=== PATIENT | male | born 1950 | race Caucasian/White ===

== ENCOUNTER 2023-09-04 08:25 | Observation (INO) ==
--- NOTE | 2023-09-04 08:32 | Emergency Department Note ---
Impression & Plan Syncope, Chronic atrial fibrillation, Influenza A ED Provider Note NAME: TINY DENISE AGE: 73 SEX: M : 1950 ARRIVES VIA: Ambulance INFORMANT: Patient, ED PROVIDER(S): Nelson Bardales MD CHIEF COMPLAINT: Syncope MEDICAL DECISION MAKING: Patient presents due to concern for syncope. IV was established blood work was obtained along with an EKG screening chest x- ray and patient was ordered IV fluids. Patient's blood work shows a normal white count H&H and platelet count kidney function is unremarkable. Patient's initial troponin negative. As the patient had complained of 2 days of nonproductive cough and bio fire was obtained. Given the patient's lack of prodromal symptoms with associated syncope in the setting of known history of A-fib do not think it unreasonable for admission. Patient is comfortable with this plan of care. I did speak with the on-call hospitalist service LUIS FERNANDO Tam and the patient was admitted by Dr. Dixon. Discussion w/ other healthcare providers: LUIS FERNANDO Tam [facility] Prior /Outside records reviewed: Reviewed AN outpatient orthopedic visit from Dr. Rodriguez from January 2022. Patient was seen for closed fracture of the distal clavicle at that time Differential diagnosis: Vasovagal event, dehydration, infection, hypoglycemia, electrolyte abnormalities, arrhythmia, pulmonary embolism, seizure among others were considered. Diagnostics, as interpreted by me: ECG: A-fib, rate of 53, normal QRS duration, normal axis no ST elevations Cardiac monitoring: An order was placed for continuous cardiac monitoring. The monitor shows a rate of 55 with irregular irregular rhythm. Patient was placed on pulse oximetry Medical decision rules: None Imaging studies: I informally interpreted the patient's chest x-ray which does not show obvious pneumonia or pneumothorax with formal report to follow. HPI: Patient presents due to concern for syncope that occurred earlier today. Patient states that he got up to use the bathroom when suddenly woke up on the floor. The patient denies any head or neck pain. The patient had no prodromal symptoms. The patient denies any lightheadedness or dizziness. The patient did not take his morning medications. Patient does have a known history of A-fib but reportedly is not anticoagulated as it is "too expensive." Patient denies any vomiting or diarrhea no dark or bloody stools. Patient does follow with Dr. Cr with [facility] cardiology PAST MEDICAL HISTORY: See Below PAST SURGICAL HISTORY: See Below SOCIAL HISTORY: See Below HOME MEDICATIONS: See Below ALLERGIES: See Below VITALS: See Below PHYSICAL EXAMINATION: GENERAL: NAD, non-toxic. EYE EXAM: Normal conjunctiva. PERRL, no anisocoria and EOM's grossly intact w/o pain. OROPHARYNX: Moist mucus membranes, grossly normal dentition. NECK: Supple, no nuchal rigidity, no adenopathy, non-tender. No signs of meningismus. FROM of the neck with good chin to chest and neck extension. No stridor. LUNGS: Clear to auscultation. Normal chest wall mechanics. HEART: Irregularly irregular, no MRG. ABDOMEN: Abdomen soft, non-tender, no masses, no rebound or guarding. BACK: No CVA TTP. Lipomas noted to the midline. SKIN: No rashes and no bruising. UPPER EXTREMITIES: Upper extremities are grossly normal. LOWER EXTREMITIES: Grossly normal, no edema. NEURO EXAM: A&O x3, cranial nerves II-XII grossly intact, normal speech, moves all 4 extremities. Past Med/Surg History Medical History BPH (benign prostatic hyperplasia) CAD (coronary artery disease) Chronic atrial fibrillation Declines anticoagulation Closed fracture of distal clavicle Lipoma Surgical History History of root canal procedure (~06/23/17) Left upper History of coronary artery balloon dilation (~2004) PTCA; LAD stent Hx of cataract surgery Bilateral - x 2 about 7 - 8 years ago. 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 Beliefs That Will Affect Care: None marital status: Current Living Situation: Spouse current occupational status: unemployed How many Children do You have: 0 Other Information That Helps Us Care for You: No Feels Safe at Home: Yes Allergies Allergies Allergy/AdvReac Type Severity Reaction Status Date / Time cat dander Allergy Intermediate Sneezing, Unverified 09/04/23 10:48 itchy/watery eyes grass pollen Allergy Intermediate Sneezing, Unverified 09/04/23 10:48 itchy/watery eyes tree and shrub pollen Allergy Intermediate Sneezing, Unverified 09/04/23 10:48 itchy/watery eyes Home Meds Home Medications Medication Instructions Recorded Confirmed multivitamin 1 cap PO QAM 07/12/18 09/04/23 omega 2-cod-tlr-fish oil 1,000 mg 1 tab PO DAILY 07/12/18 09/04/23 (120 mg-180 mg) capsule (Fish Oil) ascorbic acid (vitamin C) 1,000 mg 1,000 mg PO QAM 05/19/20 09/04/23 tablet aspirin 81 mg tablet,delayed 81 mg PO QAM 05/19/20 09/04/23 release cetirizine 10 mg capsule 10 mg PO HS 05/19/20 09/04/23 fluticasone propionate 50 1 spray intranasal DAILY 05/19/20 09/04/23 mcg/actuation nasal spray,suspension (Flonase Allergy Relief) melatonin 3 mg tablet 3 mg PO HS 05/19/20 09/04/23 tamsulosin 0.4 mg capsule (Flomax) 0.4 mg PO QAM 05/19/20 09/04/23 Testosterone 20% Gel 1 pump topical QA 09/04/23 09/04/23 soybean, fermented 50 mg capsule 100 mg PO QAM 09/04/23 09/04/23 (Nattokinase) tadalafil 5 mg tablet 5 mg PO QAM 09/04/23 09/04/23 tizanidine 2 mg tablet 2 mg PO HS PRN Muscle Spasm 09/04/23 09/04/23 vitamin B complex 1 tab PO QAM 09/04/23 09/04/23 Results & Data (ED) Vital Signs Vital Signs - 24 hr 09/04/23 08:30 09/04/23 08:41 09/04/23 09:00 Temperature 37.0 C Temperature Source Oral Pulse Rate 69 72 67 Pulse Rate from SpO2 Sensor Pulse Rhythm Regular Pulse Strength Normal Respiratory Rate 20 Respiratory Effort / Characteristics Non-Labored Spontaneous Respiratory Depth Normal Respiratory Pattern Regular Blood Pressure 103/67 Blood Pressure Mean 79 Blood Pressure Position Sitting Pulse Oximetry 95 96 Oxygen Delivery Method Room Air Nasal Cannula Sepsis Recent Fever Within 48 Hours No Sepsis New/Unexplained Change in Mental Status No Sepsis Action Taken by Nursing No Action Required 09/04/23 09:29 09/04/23 09:30 09/04/23 10:08 Temperature Temperature Source Pulse Rate 73 65 66 Pulse Rate from SpO2 Sensor 72 66 Pulse Rhythm Pulse Strength Respiratory Rate 17 15 15 Respiratory Effort / Characteristics Respiratory Depth Respiratory Pattern Blood Pressure 116/73 103/64 102/62 Blood Pressure Mean 87 77 75 Blood Pressure Position Pulse Oximetry 97 97 Oxygen Delivery Method Sepsis Recent Fever Within 48 Hours Sepsis New/Unexplained Change in Mental Status Sepsis Action Taken by Nursing 09/04/23 10:30 Temperature Temperature Source Pulse Rate 66 Pulse Rate from SpO2 Sensor 63 Pulse Rhythm Pulse Strength Respiratory Rate 20 Respiratory Effort / Characteristics Respiratory Depth Respiratory Pattern Blood Pressure 105/73 Blood Pressure Mean 83 Blood Pressure Position Pulse Oximetry 95 Oxygen Delivery Method Sepsis Recent Fever Within 48 Hours Sepsis New/Unexplained Change in Mental Status Sepsis Action Taken by Correction Medications Current Medication List: was personally reviewed by me Laboratory Data Attestation: I reviewed the patient's lab results. 09/04/23 08:30 09/04/23 08:30 Lab Results 09/04/23 Range/Units 08:30 WBC 5.54 (4.8-10.8) K/ul RBC 5.09 (4.70-6.10) M/uL Hgb 15.9 (14.0-18.0) g/dl Hct 46.8 (42.0-52.0) % MCV 91.9 (80.0-100.0) fL MCH 31.2 (25.0-34.0) pg MCHC 34.0 (32.0-36.0) g/dL RDW Std Deviation 45.4 (36.4-46.3) fL RDW Coeff of Penelope 13.3 (11.5-14.5) % Plt Count 134 (130-400) K/uL MPV 9.7 (9.4-12.4) fL Immature Gran % (Auto) 0.2 % Neut % (Auto) 54.3 % Lymph % (Auto) 29.8 % [place] % (Auto) 13.9 % Eos % (Auto) 0.9 % Baso % (Auto) 0.9 % Neut # (Auto) 3.01 (1.40-6.50) K/uL Lymph # (Auto) 1.65 (1.20-3.40) K/uL [place] # (Auto) 0.77 H (0.11-0.59) K/uL Eos # (Auto) 0.05 (0.00-0.50) K/uL Baso # (Auto) 0.05 (0.00-0.20) K/uL Immature Gran # (Auto) 0.01 (0.01-0.20) K/uL PT 11.5 (9.0-12.0) Seconds INR 1.1 (0.9-1.1) APTT 27 (21-31) Seconds PTT Ratio 1.0 Sodium 140 (136-145) mmol/L Potassium 3.9 (3.5-5.1) mmol/L Chloride 108 H (98-107) mmol/L Carbon Dioxide 28 (21-32) mmol/L Anion Gap 4 (3-11) BUN 22 (6-23) mg/dl Creatinine 1.20 (0.6-1.4) mg/dl Est Cr Clr Drug Dosing 60.1 ml/min Est GFR ( Amer) 68.6 ml/min Est GFR (Non-Af Amer) 59.2 ml/min BUN/Creatinine Ratio 18.3 (10-20) Glucose 116 H (70-99(Fasting)) mg/dl Calcium 8.8 (8.6-10.3) mg/dl Magnesium 1.8 (1.7-2.4) mg/dl Total Bilirubin 1.1 H (0.2-1.0) mg/dl AST 29 (13-39) U/L ALT 18 (7-52) U/L Alkaline Phosphatase 47 (34-104) U/L Troponin I High Sens 16.2 (0-20) pg/ml Total Protein 6.5 (6.0-8.3) gm/dl Albumin 3.8 (3.4-5.0) gm/dl Globulin 2.7 (2.5-4.0) gm/dl Albumin/Globulin Ratio 1.4 (0.9-2) TSH 4.041 (0.300-4.500) uIu/ml Administered Medications Enoxaparin Sodium (Enoxaparin Inj 40 Mg/0.4 Ml Syr) 40 mg SQ DAILY [facility] Stop: 10/04/23 12:44 Last Admin: 09/04/23 13:37 Dose: 40 mg Documented By: AMALIA Sodium Chloride (Nss) 1,000 mls @ 80 mls/hr IV .[id number] AMY Stop: 09/05/23 12:59 Last Admin: 09/04/23 13:37 Dose: 80 mls/hr Documented By: AMALIA Miscellaneous (Tadalafil ~ Order Awaiting Action) 1 each N/A QS [facility] Stop: 10/04/23 15:59 Last Admin: 09/04/23 13:33 Dose: Not Given Documented By: AMALIA Discontinued Medications Sodium Chloride (Nss) 500 mls @ 999 mls/hr IV .Q31M AMY Stop: 09/04/23 09:30 Last Infusion: 09/04/23 09:30 Dose: Infused Documented By: Admin: 09/04/23 08:59 Dose: 999 mls/hr Documented By: MEDARDO Ioversol (Optiray 320 125ml) 115 ml IV ONCE ONE Stop: 09/04/23 12:17 Last Admin: 09/04/23 12:16 Dose: 115 ml Documented By: SINAN Potassium Chloride (Potassium Chloride Crtab 20 Meq Tabcr) 40 meq PO NOW STA Stop: 09/04/23 13:27 Last Admin: 09/04/23 13:37 Dose: 40 meq Documented By: AMALIA Imaging Data Radiologist's Impression: Chest X-Ray 09/04/23 08:48 XR chest 1V portable CLINICAL HISTORY: Syncope. COMPARISON STUDY: Chest radiograph August 28, 2009. FINDINGS: Lung volumes are normal. Lungs are clear. There is no pneumothorax or pleural effusion. Cardiac size is normal. Mediastinal contours are normal. There is no evidence for pulmonary edema. Incidental note is made of an old nonunited distal left clavicular fracture. IMPRESSION: No acute cardiopulmonary findings. ACT 112: Negative or not required by law. Electronically signed by: Madi Stanton M.D. 09/04/2023 9:[address] 09/04/23 09:49 CT SCAN OF THE BRAIN WITHOUT IV CONTRAST CLINICAL HISTORY: Syncope. Head injury. COMPARISON STUDY: CT of the brain dated 07/12/2018. TECHNIQUE: Unenhanced axial CT scan of the brain is performed from the vertex to the skull base. A dose lowering technique was utilized adhering to the principles of ALARA. CT DOSE: 625.8 mGy.cm FINDINGS: Brain parenchyma: There is age-related involutional change noting mild subcortical and periventricular microangiopathic disease. There is no hemorrhage, mass effect, or evidence of acute territorial ischemia by CT criteria. Richardson-white matter differentiation is preserved. No extra-axial fluid collection is seen. Ventricles, sulci, cisterns: Prominent secondary to involutional change. Intracranial vasculature: There is atherosclerotic calcification of the cavernous carotid arteries. Calvarium: The skeletal structures are osteopenic. No depressed calvarial fracture is seen. Soft tissues: There is posterior scalp contusion. Sinuses and mastoids: There is opacification of the right anterior ethmoid sinuses. Mild mucosal thickening is noted of the right frontal sinus. There is trace mucosal thickening within the left ethmoid sinuses and the sphenoid sinuses. The mastoid air cells are well pneumatized. Orbits: The bony orbits are grossly intact. There are bilateral ocular lens implants. IMPRESSION: There is no hemorrhage, mass effect, or evidence of acute territorial ischemia by CT criteria. ACT 112: Negative or not required by law. Electronically signed by: Dominic Funk M.D. 09/04/2023 10:12 AM Discharge Plan Visit Data Chief Complaint: Syncope Stated Complaint: SYNCOPE ED Provider: Nelson Bardales Discharge Problem: Syncope, Chronic atrial fibrillation, Influenza A Patient Disposition: Admitted As Inpatient Discharge Instructions Interventions: ED Discharge Assessment Last Done: 09/04/23 11:39 Discharge Problem: Syncope Qualifiers: Syncope type: unspecified Qualified Code(s): R55 - Syncope and collapse
[2023-09-04] MEDS ORDERED: SODIUM CHLORIDE 0.9% 500 ML IV SCH (09:00)
[2023-09-04 09:05] LABS: Basophils # (auto) 0.05 K/uL (0.00-0.20); Basophils % (auto) 0.9 %; Eosinophils # (auto) 0.05 K/uL (0.00-0.50); Eosinophils % (auto) 0.9 %; Hematocrit (blood only) 46.8 % (42.0-52.0); Hemoglobin 15.9 g/dl (14.0-18.0); Immature Granulocytes # (auto) 0.01 K/uL (0.01-0.20); Immature Granulocytes % (auto) 0.2 %; Lymphocytes # (auto) 1.65 K/uL (1.20-3.40); Lymphocytes % (auto) 29.8 %; Mean Corpuscular Hemoglobin 31.2 pg (25.0-34.0); Mean Corpuscular Volume 91.9 fL (80.0-100.0); Mean Platelet Volume 9.7 fL (9.4-12.4); Monocytes # (auto) 0.77 K/uL (0.11-0.59); Monocytes % (auto) 13.9 %; Neutrophils # (auto) 3.01 K/uL (1.40-6.50); Neutrophils % (auto) 54.3 %; Platelet Count 134 K/uL (130-400); RDW Coefficient of Variation 13.3 % (11.5-14.5); RDW Standard Deviation 45.4 fL (36.4-46.3); Red Blood Count 5.09 M/uL (4.70-6.10); White Blood Count 5.54 K/ul (4.8-10.8)
[2023-09-04 09:18] LABS: Albumin Globulin Ratio 1.4 (0.9-2); Albumin Level 3.8 gm/dl (3.4-5.0); BUN Creatinine Ratio 18.3 (10-20); Bilirubin,Total 1.1 mg/dl (0.2-1.0); Calcium 8.8 mg/dl (8.6-10.3); Creatinine Clr Calc Pharmacy 60.1 ml/min; Est GFR (African American) 68.6 ml/min; Est GFR (Non-African American) 59.2 ml/min; Globulin 2.7 gm/dl (2.5-4.0); Magnesium 1.8 mg/dl (1.7-2.4); Potassium 3.9 mmol/L (3.5-5.1); Total Protein 6.5 gm/dl (6.0-8.3)
--- NOTE | 2023-09-04 09:20 | XRay Report ---
XR chest 1V portable CLINICAL HISTORY: Syncope. COMPARISON STUDY: Chest radiograph August 28, 2009. FINDINGS: Lung volumes are normal. Lungs are clear. There is no pneumothorax or pleural effusion. Car diac size is normal. Mediastinal contours are normal. There is no evidence for pulmonary edema. Incid ental note is made of an old nonunited distal left clavicular fracture. IMPRESSION: No acute cardiopulmonary findings. ACT 112: Negative or not required by law. Electronically signed by: Madi Stanton M.D. 09/04/2023 9:19 AM
[2023-09-04 09:33] LABS: Thyroid Stimulating Hormone 4.041 uIu/ml (0.300-4.500)
--- NOTE | 2023-09-04 10:14 | CT Scan Report ---
CT SCAN OF THE BRAIN WITHOUT IV CONTRAST CLINICAL HISTORY: Syncope. Head injury. COMPARISON STUDY: CT of the brain dated 07/12/2018. TECHNIQUE: Unenhanced axial CT scan of the brain is performed from the vertex to the skull base. A do se lowering technique was utilized adhering to the principles of ALARA. CT DOSE: 625.8 mGy.cm FINDINGS: Brain parenchyma: There is age-related involutional change noting mild subcortical and periventricula r microangiopathic disease. There is no hemorrhage, mass effect, or evidence of acute territorial isc hemia by CT criteria. Richardson-white matter differentiation is preserved. No extra-axial fluid collection is seen. Ventricles, sulci, cisterns: Prominent secondary to involutional change. Intracranial vasculature: There is atherosclerotic calcification of the cavernous carotid arteries. Calvarium: The skeletal structures are osteopenic. No depressed calvarial fracture is seen. Soft tissues: There is posterior scalp contusion. Sinuses and mastoids: There is opacification of the right anterior ethmoid sinuses. Mild mucosal thic kening is noted of the right frontal sinus. There is trace mucosal thickening within the left ethmoid sinuses and the sphenoid sinuses. The mastoid air cells are well pneumatized. Orbits: The bony orbits are grossly intact. There are bilateral ocular lens implants. IMPRESSION: There is no hemorrhage, mass effect, or evidence of acute territorial ischemia by CT dionicio puente. ACT 112: Negative or not required by law. Electronically signed by: Dominic Funk M.D. 09/04/2023 10:12 AM
[2023-09-04 10:26] LABS: INR 1.1 (0.9-1.1); Partial Thromboplastin Time 27 Seconds (21-31); Prothrombin Time 11.5 Seconds (9.0-12.0)
[2023-09-04 10:48] LABS: Troponin I High Sensitivity 16.2 pg/ml (0-20)
--- OUTSIDE RECORDS SUMMARY | 2023-09-04 11:55 | External Medical Summary | Summary of Care ---
Author Name Unknown Organization [facility] Address [address] [place] [address] Phone [phone] Care Team Providers Care Best [employer] Name Role Phone Jean Lopez MD Primary Care Provider + Reason for Visit * Reason Onset Date Comments Appointment 04/04/2023 Encounter Details Date Type Department Care Team Description 04/04/2023 Telephone Care at Home [address] [place] [address] Services, Scheduling [address] [place] [address] Appointment Allergies Active Allergy Reactions Severity Noted Date Comments Environmental Allergy test positive Medium 06/28/2009 Grass,shwetha, trees, and cats documented as of this encounter (statuses as of 05/08/2023) Medications Medication Sig Dispensed Refills Start Date End Date Status MELATONIN 3 MG PO TABS 1/2 mg daily 0 Active MULTIVITAMINS PO TABS 1 tab daily 0 Active fluticasone (FLONASE) 50 MCG/ACT nasal spray Administer 1 [place] into nostril in the morning. 0 Active Ascorbic Acid 1000 MG Oral Tablet 2 tabs a day 60 Tab 0 7 Active PREVIDENT 5000 SENSITIVE 1.1-5 % PSTE USE PEA-SIZED AMOUNT AND BRUSH AT BEDTIME, SPIT BUT DO NOT RINSE 4 7 Active Aspirin 81 MG Tablet Take 1 Tablet by mouth in the morning and 1 Tablet before bedtime. 0 9 Active Nattokinase 100 MG CAPS Take by mouth. 0 Active Cholecalciferol (VITAMIN D) 125 MCG (5000 UT) CAPS Take by mouth. 0 Active [place]-3 Fatty Acids (FISH OIL) 1000 MG Capsule Take 1 Capsule by mouth in the morning. 0 Active Cetirizine HCl 10 MG Capsule Take 1 Capsule by mouth in the morning. 0 Active Coenzyme Q10 (COQ10) 100 MG CAPS Take by mouth. 0 Active Hair Skin and Nails Formula Oral Tablet Take by mouth. 0 Active Sodium Fluoride 5000 PPM 1.1 % Dental Paste USE DAILY...BRUSH AND EXPECTORATE 0 1 Active Amoxicillin 500 MG Oral Capsule (Amoxil)Indicati ons:S/P angioplasty with stent,Chronic coronary artery disease,SBE (subacute bacterial endocarditis) prophylaxis candidate Take 4 capsules by mouth 1 hour before procedure 4 Capsule 1 2 Active Glucos Chondroit (Boswellia) Oral Tablet Take by mouth . 0 Active Pregnenolone Micronized 50 MG Oral Tablet Take by mouth 50 mg 2 times a day . Per patient 0 Active Vitamin B-12 1000 MCG Oral Tablet Take 1 Tablet by mouth in the morning. 0 Active Astragalus Root Powder Take by mouth 250 mg daily . 0 Active Ashwagandha 500 MG Oral Capsule Take by mouth . 0 Acti ve Meloxicam 15 MG Oral TabletIndication s:Injury of right rotator cuff, initial encounter Take 1 Tablet by mouth in the morning. for pain.. 30 Tablet 5 2 Active Additional Information Patient not taking.Reported on 01/29/2023 Tadalafil 5 MG Oral Tablet (Cialis)Indicati ons:Erectile dysfunction, unspecified erectile dysfunction type,BPH with obstruction/lowe r urinary tract symptoms Take 1 Tablet by mouth in the morning. 90 Tablet 1 3 Active Finasteride 5 MG Oral Tablet (Proscar)Indicat ions:BPH with obstruction/lowe r urinary tract symptoms Take 1 Tablet by mouth in the morning. 90 Tablet 1 3 Active tiZANidine HCl 2 MG Oral Tablet (Zanaflex) Take 1-2 tablets by mouth at night as needed for pain or muscle spasm and tightness 60 Tablet 2 3 Active Gabapentin 300 MG Oral Capsule (Neurontin) Take 1 Capsule by mouth at bedtime. 30 Capsule 1 3 Active Additional Information Patient not taking.Reported on 01/29/2023 Tamsulosin HCl 0.4 MG Oral Capsule (Flomax)Indicati ons:BPH with obstruction/lowe r urinary tract symptoms Take by mouth 1 Capsule in the morning. 90 Capsule 3 2 04/30/20 23 Discontinued Testosterone Compounding Kit 20 % Transdermal CreamIndications :Hypogonadism male Apply 0.5 mL once a day 30 g 1 3 04/08/20 23 Discontinued(Ref ill) documented as of this encounter (statuses as of 05/08/2023) Active Problems Problem Noted Date History of fracture of clavicle 07/10/20 22 [place]-neck deformity of finger of right h and 03/28/2022 Chronic bilateral low back pain without sciatica 12/19/2021 Mixed hyperlipidemia 12/19/2021 Trigger finger of left thumb 11/28/2021 BPH with obstruction/lower urinary tract symptoms 06/09/2019 Hypogonadism male 02/24/2019 Numbness in feet 07/24/2018 Chronic atrial fibrillation 04/23/2011 ADVANCE DIRECTIVE INFORMATION 05/22/2005 Overview: No, Advance Directive brochure given to patient at prior appointment. S/P angioplasty with stent 12/15/2004 Chronic coronary artery disease 12/16/19 05 Old MD (myocardial infarction) 5 documented as of this encounter (statuses as of 05/08/2023) Resolved Problems Problem Noted Date Resolved Date Kidney disease, chronic, stage III (GFR 30-59 ml /min) 05/06/2018 07/10/2022 Overview: Per CKD protocol #1 - Chronic throat clearing 09/26/2017 12/20/19 22 Post-nasal drip 09/26/2017 07/07/2018 FDC current use of anticoagulant therapy 0 03/08/2009 10/12/2010 Overview: ICD-10 update of inactive term Anticoagulation management encounter 03/08/2009 10/12/2010 Atrial fibrillation 10/12/2010 documented as of this encounter (statuses as of 05/08/2023) Immunizations Name Administration Dates Next Due COVID-19 mRNA, LNP-s, No Pre serve, 2-Dose Series ([employer]) 01/12/2022,06/18/2021,11/19/2020,10/29 Covid-19, Mrna, Lnp-s, Pf, B ivalent, 30 Mcg, IM, 12 yrs and above (Pfizer) 06/04/2022 DTaP - Dipth/Tet/Acell Pertussis 06/16/2014 Pneumococcal Conjugate Vacc, 13 Valent (Prevnar) 10/04/2014 Pneumococcal Polysaccharide PPV23 (Pneumovax) 07/13/2015 Seasonal Influenza, Quadriva lent Hd (Fluzone Hd) 06/12/2021 Seasonal Influenza, Quadriva lent Hd, 65+ Yrs 05/19/2020 Seasonal Influenza, Quadriva lent, No Preserve, 6 Mons & Above, IM 07/07/2018,07/15/2017 Seasonal Influenza, Quadriva lent, No Preserve, IM 07/07/2018,06/07/2016 Seasonal Influenza, Split, I IV3, With Preserve, Inj 06/23/2015 Seasonal Influenza, Trivalen t, Adjuvanted, 65+ yrs 06/09/2019 Seasonal Influenza, Trivalen t, High Dose, No Preserve, IM 06/19/2022 TDAP (age 10 and older)(Boostrix) 03/01/2017 Varicella Zoster Vaccine (Adult) 09/24/2010 Zoster Vaccine Recombinant (Shingrix) 02/24/2020 ,10/12/2019 documented as of this encounter Social History Tobacco Use Types Packs/Day Years Used Date Smoking Tobacco: Never Smokeless Tobacco: Never Alcohol Use Standard Drinks/Week Comments Yes 0 (1 standard drink = 0.6 oz pur e alcohol) rare social Food Insecurity Answer Date Recorded Within the past 12 months, y ou worried that your food would run out before you got money to buy more. Never true 01/15/2023 Within the past 12 months, t he food you bought just didn't last and you didn't have money to get more. Never true 01/15/2023 Sex Assigned at Date Recorded Male 02/24/2019 10:35 AM EDT Job Start Date Occupation Industry Not on file Not on file Not on file documented as of this encounter Miscellaneous Notes * Telephone Encounter - BREA Peck - 05/08/2023 2:25 PM EDT Care At Home Outreach Call attempt: 2nd Call Call result: Call Successful - Patient enrolled and agreed to visit. Appointment with: Stephanie Corcoran PA-C Visit Date: 05/21/23 Visit Time: 1030am BREA Peck * Telephone Encounter - BREA Peck - 04/04/2023 9:33 AM EDT [facility] Home Outreach Call attempt: 1st Call Call result: Call Unsuccessful - Left a voice mail Looking to schedule patient for AWV with Stephanie Corcoran PA-C Can offer: 04/10/23 or 04/15/23 Provided a call back number of [phone]. BREA Peck documented in this encounter Plan of Treatment Upcoming Encounters Date Type Specialty Care Team Description 05/21/2023 Home Visit Family Medicine Stephanie Corcoran PA-C [address] [place] [id number] 06/13/2023 Office Visit Cardiology Kenton Cr MD [address] [place] [phone] Health Maintenance Due Date Last Done Comments Sigmoidoscopy 1994 Colonoscopy 04/23/2018 04/23/2008 Fecal Occult Blood Test 08/10/2022 08/10/2021 Influenza Vaccine (FLU shot) (#1) 2023 06/19/2022, 06/12/2021, 05/19/2020, Additional history exists Depression Screening, Annual for Pts 12 and Over 01/16/2024 01/15/2023 Cologuard 07/28/2025 07/28/2022, 06/24, 07/20/2022, Additional history exists Colorectal Cancer Screening 07/28/2025 DTaP,Tdap,and Td Vaccines (3 - Td or Tdap) 03/01/2027 03/01/2017, 06/16/2014 Pneumococcal Vaccine: 65+ Years Completed 07/13/2015, 10/04/2014 Zoster Vaccines Completed 02/24/2020, 09/24, 09/24/2010 COVID-19 Vaccine Completed 06/04/2022, , 06/18/2021, Additional history exists Albumin/Creatinine Ratio Discontinued 022, 07/05/2021, 12/02/2019, Additional history exists GARDASIL-HPV IMMUNIZATION SERIES Aged Out No longer eligible based on patient's age to complete this topic Hepatitis B Aged Out No longer eligi ble based on patient's age to complete this topic MENINGOCOCCAL (MENACTRA/MENVEO) Aged Out No longer eligible based on patient's age to complete this topic documented as of this encounter Medical Devices Not on filedocumented as of this encounter Care Teams Best 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
--- OUTSIDE RECORDS SUMMARY | 2023-09-04 11:55 | External Medical Summary | Summary of Care ---
Author Name Unknown Organization [facility] Address [address] [place] [address] Phone [phone] Care Team Providers Care Grievance And Appeals Coordinator Name Role Phone Jean Anna MD Primary Care Provider + Reason for Visit * Reason Comments Adult Annual Wellness Visit, Initial Vis it Encounter Details Date Type Department Care Team Description 05/21/2023 Home Visit Care at Home [address] [place] [address] Stephanie Corcoran PA-C [address], [place] [id number] H/O cardiac arrest*; BPH with obstruction/lower urinary tract symptoms; Chronic atrial fibrillation (HCC); Chronic bilateral low back pain without sciatica; Chronic coronary artery disease; History of fracture of clavicle; Hypogonadism male; Mixed hyperlipidemia; Old IA (myocardial infarction); S/P angioplasty with stent; 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; Peripheral polyneuropathy Allergies Active Allergy Reactions Severity Noted Date Comments Environmental Allergy test positive Medium 06/28/2009 Grass,shwetha, trees, and cats documented as of this encounter (statuses as of 05/21/2023) Medications Medication Sig Dispensed Refills Start Date End Date Status MELATONIN 3 MG PO TABS 1/2 mg daily 0 Active MULTIVITAMINS PO TABS 1 tab daily 0 Active Ascorbic Acid 1000 MG Oral Tablet 2 tabs a day 60 Tab 0 01/16/2017 Active PREVIDENT 5000 SENSITIVE 1.1-5 % PSTE USE PEA-SIZED AMOUNT AND BRUSH AT BEDTIME, SPIT BUT DO NOT RINSE 4 08/19/2017 Active Aspirin 81 MG Tablet Take 1 Tablet by mouth in the morning and 1 Tablet before bedtime. 0 01/06/2019 Active Nattokinase 100 MG CAPS Take by mouth. 0 Active Cholecalciferol (VITAMIN D) 125 MCG (5000 UT) CAPS Take by mouth. 0 Active Willmar-3 Fatty Acids (FISH OIL) 1000 MG Capsule Take 1 Capsule by mouth in the morning. 0 Active Coenzyme Q10 (COQ10) 100 MG CAPS Take by mouth. 0 Active Hair Skin and Nails Formula Oral Tablet Take by mouth. 0 Active Sodium Fluoride 5000 PPM 1.1 % Dental Paste USE DAILY...BRUSH AND EXPECTORATE 0 09/05/2021 Active Amoxicillin 500 MG Oral Capsule (Amoxil)Indicatio ns:S/P angioplasty with stent,Chronic coronary artery disease,SBE (subacute bacterial endocarditis) prophylaxis candidate Take 4 capsules by mouth 1 hour before procedure 4 Capsule 1 12/04/2021 Active Glucos Chondroit (Boswellia) Oral Tablet Take [...] Take by mouth . 0 Acti ve Tadalafil 5 MG Oral Tablet (Cialis)Indicatio ns:Erectile dysfunction, unspecified erectile dysfunction type,BPH with obstruction/lower urinary tract symptoms Take 1 Tablet by mouth in the morning. 90 Tablet 1 11/26/2022 Active tiZANidine HCl 2 MG Oral Tablet (Zanaflex) Take 1-2 tablets by mouth at night as needed for pain or muscle spasm and tightness 60 Tablet 2 01/16/2023 Active Testosterone Compounding Kit 20 % Transdermal CreamIndications: Hypogonadism male Apply 0.5 mL once a day 30 g 1 04/08/2023 Active Tamsulosin HCl 0.4 MG Oral Capsule (Flomax)Indicatio ns:BPH with obstruction/lower urinary tract symptoms TAKE ONE CAPSULE BY MOUTH EVERY MORNING 90 Capsule 3 04/30/2023 Active Pumpkin Seed Oil Oral Capsule Take by mouth. 0 05/21/2023 Active Cetirizine HCl 10 MG Oral Capsule Take 1 Capsule by mouth in the morning. 0 05/21/2023 Active fluticasone (FLONASE) 50 MCG/ACT nasal spray Administer 1 [place] into nostril in the morning. 0 3 Discontinue d(Medicatio n List Clean Up) Cetirizine HCl 10 MG Capsule Take 1 Capsule by mouth in the morning. 0 3 Discontinue d(Medicatio n List Clean Up) Meloxicam 15 MG Oral TabletIndications :Injury of right rotator cuff, initial encounter Take 1 Tablet by mouth in the morning. for pain.. 30 Tablet 5 09/20/2022 3 Discontinue d(Medicatio n List Clean Up) Finasteride 5 MG Oral Tablet (Proscar)Indicati ons:BPH with obstruction/lower urinary tract symptoms Take 1 Tablet by mouth in the morning. 90 Tablet 1 11/26/2022 3 Discontinue d(Medicatio n List Clean Up) Gabapentin 300 MG Oral Capsule (Neurontin) Take 1 Capsule by mouth at bedtime. 30 Capsule 1 01/16/2023 3 Discontinue d(Medicatio n List Clean Up) documented as of this encounter (statuses as of 05/21/2023) Active Problems Problem Noted Date H/O cardiac arrest 05/21/2023 Peripheral polyneuropathy 05/21/2023 History of fracture of clavicle 07/10/20 22 Barclay-neck deformity of finger of right h and [...] Chronic coronary artery disease 12/16/19 05 Old IA (myocardial infarction) 5 documented as of this encounter (statuses as of 05/21/2023) Resolved Problems Problem Noted Date Resolved Date Kidney disease, chronic, stage III (GFR 30-59 ml /min) 05/06/2018 07/10/2022 Overview: Per CKD protocol #1 - Chronic throat clearing 09/26/2017 12/20/19 22 Post-nasal drip 09/26/2017 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 0 03/08/2009 10/12/2010 Overview: ICD-10 update of inactive term Anticoagulation management encounter 03/08/2009 10/12/2010 Atrial fibrillation 10/12/2010 documented as of this encounter (statuses as of 05/21/2023) Immunizations Name Administration Dates Next Due COVID-19 mRNA, LNP-s, No Pre serve, 2-Dose Series (Skulpt) 01/12/2022,06/18/2021,11/19/2020,10/29 Covid-19, Mrna, Lnp-s, Pf, B ivalent, 30 Mcg, IM, 12 yrs and above (Skulpt) 06/04/2022 DTaP - Dipth/Tet/Acell Pertussis 06/16/2014 Pneumococcal Conjugate Vacc, 13 Valent (Prevnar) 10/04/2014 Pneumococcal Polysaccharide PPV23 (Pneumovax) 07/13/2015 Seasonal Influenza, PF, 6 mo ns & Above, IM , (Flulaval) 07/07/2018,07/15/2017 Seasonal Influenza, Quadriva lent Hd (Fluzone Hd) 06/12/2021 Seasonal Influenza, Quadriva lent Hd, 65+ Yrs 05/19/2020 Seasonal Influenza, Quadriva lent, No Preserve, IM [...] on file documented as of this encounter Last Filed Vital Signs Vital Sign Reading Time Taken Comments Blood Pressure 132/78 05/21/2023 4:13 PM EDT Pulse 85 05/21/2023 4:13 PM EDT Temperature 36.7 C (98.1 F) 05/21/2023 4:13 PM ED T Respiratory Rate 18 05/21/2023 4:13 PM EDT Oxygen Saturation 97% 05/21/2023 4:13 PM EDT Inhaled Oxygen Concentration - - Weight - - Height - - Body Mass Index - - documented in this encounter Progress Notes * Stephanie Corcoran PA-C - 05/21/2023 12:23 PM EDT ANNUAL HEALTH RISK ASSESSMENT Care at Home [address] [facility] [address] Patient Name: Tiny Merlos : 1950 Date of Assessment: 05/21/2023 Gender: Male PCP: [place] [address] [place] [address] [phone] Extended Emergency Contact Information Primary Emergency Contact: CECILIA MERLOS Relation: Spouse Secondary Emergency Contact: JAY ROLLINS Relation: Other - (no specific identity) HRA Intake Documentation: Advance Care Planning: Advance Directive Type: Living Will and Medical Power of Genetic Physician Advance Directive Date: 2017 Medical Adherence: Patient is able to obtain all of her medications? Yes Patient takes medications as prescribed? Yes Patient uses a pill box? No Admissions (within the last year): Not Applicable Hospital ER within 30 days: No Health Maintenance Last physical exam: 01/15/23 Does patient see provider regularly? Yes, Primary Care Provider Cardio-Dr. Cr Spirometry: No Dental Exam: Yes: When: every 6 months and Where: [place], [place] Other Test(s) - No time frame specified Colonoscopy 2007 Findings: A few diverticula were found in the sigmoid colon. Impression: - Diverticulosis of the sigmoid colon. - The exam was otherwise normal to the cecum. Recommendation: - Repeat colonoscopy in 10 years for screening purposes. - Resume Plavix (clopidogrel) at prior dose today. Gustavo Gaffney MD Signed Date: 04/23/2008 03:27:29 PM Number of Addenda: 0 This report has been signed electronically. Note initiated on 04/23/2008 02:48:39 PM XR clavicle 12/04/21 FINDINGS Osteopenia. There is a displaced left distal clavicle fracture with 1 shaft width cranial displacement of the medial clavicular fragment. The distal fragment remains normally aligned with the acromion. Glenohumeral joint is grossly intact. IMPRESSION IMPRESSION Displaced left distal clavicle fracture. MRI R shoulder 11/01/22 HISTORY Shoulder pain; Preoperative planning; No known/automatically detected potential contraindications to MRI TECHNIQUE Multi-planar, multi-sequence MR imaging of the right shoulder was performed without contrast. COMPARISON Right shoulder radiographs 10/16/2022. FINDINGS JOINT FLUID AND SUBACROMIAL/SUBDELTOID BURSA: No joint effusion. Small subacromial bursal effusion. CORACOACROMIAL ARCH: No significant acromioclavicular osteoarthritis. No os acromiale. No subacromial spur. ROTATOR CUFF: There is a moderate grade bursal sided tear of the supraspinatus tendon around the critical zone, involving between 25-50% of the tendon thickness (as seen on coronal images 14-16). Thetear is superimposed on background of supraspinatus tendinosis. The subscapularis, infraspinatus, and teres minor tendons are intact. No rotator cuff muscle atrophy. LONG HEAD BICEPS: Intact and located in the biceps groove. GH JOINT/LABRUM/CAPSULE: Evaluation of the labrum is limited without significant joint fluid or intra-articular gadolinium.There is moderate osteoarthritis of the glenohumeral joint, characterized bychondral loss with marginal osteophytes from the humeral head and glenoid. This includes regions offull-thickness chondral loss with subchondral cysts in the inferior glenoid. Degenerative signal and fraying is seen throughout the labrum. BONE: No fracture or marrow replacing lesion. Incidental note is made of cystic changes around the supraspinatus and infraspinatus tendon insertions onto the greater tuberosity. SOFT TISSUES: Unremarkable. IMPRESSION IMPRESSION 1. Moderate grade bursal sided tear of the supraspinatus tendon. 2. Moderate glenohumeral osteoarthritis. 3. Subacromial bursitis. EKG 04/25/22 Atrial fibrillation Abnormal ECG When compared with ECG of 18-MAY-2021 13:38, No significant change was found Ventricular Rate: 60 Atrial Rate: 416 QRS Duration: 92 QT/QTc: 414/414 ms P-R-T Lucas: 0 : 70 : 59 degrees Echo Interpretation Summary The examination is adequate to evaluate the referral indication. Rate controlled atrial fibrillation was present during the echocardiogram examination. The LV wall thickness is mildly increased (concentric). The left ventricular wall motion is normal. Calculated LV ejection Fraction = 52% (bi-plane method of discs). The left atrium is moderately enlarged (42-48 ml/m^2). Mild aortic valve sclerosis is present. Aortic stenosis is absent. Mild mitral regurgitation is present. Mild tricuspid regurgitation is present. The aortic root is mildly enlarged with diameter of 4 cm. The proximal ascending thoracic aorta is normal sized. Left Ventricle The left ventricular systolic function is normal. Calculated LV ejection Fraction = 52% (bi-plane method of discs). The left ventricular cavity size is normal. The LV wall thickness is mildly increased (concentric). There isno left ventricular mural thrombus. Left Ventricular Wall Motion The left ventricular wall motion is normal. Right Ventricle The right ventricular cavity size is normal (basal dimension < 4.2 cm RV apical 4 chamber view).The right ventricular systolic function is normal as assessed by tricuspid annular plane systolic excursion (TAPSE) (normal >1.7 cm). Atria The left atrium is moderately enlarged (42-48 ml/m^2). The right atrial size is normal. Diastolic Function Left atrial enlargement suggests diastolic left ventricular dysfunction. Aortic Valve The aortic valve anatomy is normal. Mild aortic valve sclerosis is present. Aortic stenosis is absent. There is no significant aortic regurgitation. Mitral Valve The mitral valve anatomy is normal. Mitral stenosis is absent. Mild mitral regurgitation is present. Tricuspid Valve The tricuspid valve anatomy is normal. Tricuspid stenosis is absent. Mild tricuspid regurgitation is present. Pulmonary Valve The pulmonary valve is inadequately visualized but the Doppler data is adequate for interpretation.. Pulmonic stenosis is absent. There is no significant pulmonary regurgitation. TINY MERLOS 07/16/2018 Page 1 of 2 07/16/2018 Pericardium No pericardial effusion is noted. Vessels The aortic root is mildly enlarged. The proximal ascending thoracic aorta is normal sized. Septae There is no evidence of an atrial septal defect but resolution does not allow assessment for a patent foramen ovale. There is no ventricular septal defect. Hemodynamics Normal IVC size and collapsability with sniff indicates a normal right atrial pressure of 3 mmHg. There is no evidence of pulmonary hypertension. The estimated pulmonary artery systolic pressure is 24mm Hg. Cultural Needs: Preferred Language: grenadian Yarsani/Cultural Barriers Identified: no Patient and Caregiver Support System: Patient lives: with a spouse Means of Transportation: Drives. Not a concern. Patient lives in: Two Story - How many stairs: 7 Functional Status and ADL Skills: Ambulation: Independent Dressing: Gets clothes and dresses without any assistance except for tying shoes: Independent Repositioning (bed or chair): Bed Status: Not applicable Able to move freely in chair or bed including turning over: Independent Transfers: Independent Toileting: Goes to bathroom, uses toilet, arranges clothes and returns without any assistance: Independent Continence status: continent of bladder and continent of bowel Feeding: Self Bathing: Self; Not Applicable Requires none assistance with ADLs. DME Vendor Name: N/A Fall Risk Assessment: Fall risk factors present. N/a Hmw-Ce-wpe-Go Test: Time began at 12:15. Patient stood from sitting position and walked approximately 10 feet, returned and sat down. Total time for but-cm-byz-go test was 8 seconds. The patient did well on the "Get Up and Go" test. Nutritional Health Checklist: Changed food due to illness or condition: No (0 pts) Eat fewer than 2 meals per day: No (0 pts) Eat few fruits veggies or milk products: No (0 pts) 3 or more drinks or beer, liquor, wine daily: No (0 pts) Tooth or mouth problem: No (0 pts) Not enough money to purchase food: No (0 pts) Eat alone: No (0 pts) 3 or more medications taken per day: Yes (2 pts) Weight change of 10 lbs. In 6 months: yes lost 10 lb. Has been doing intermittent fasting Not always able to shop, cook or feed self: No (0 pts) Total points: 2 Nutritional Health Score & Recommendation: 0-2: Low nutritional risk Depression Screening: PHQ2 Depression Screening Measure Rehab initial measurement Rehab discharge measurement 1. Little interest or pleasure in doing things 0 - not at all 2. Feeling down, depressed, or hopeless 0 - not at all PHQ-2 Total (sum of all above): 0 1. Feeling nervous, anxious or on edge not at all 2. Not being able to stop or control worrying not at all CATARINO-2 Total (sum of all above): 0 Social Determinants of Health Screening: SDIL Screening Tool Social Determinants of Health Tobacco Use: Low Risk Smoking Tobacco Use: Never Smokeless Tobacco Use: Never Passive Exposure: Not on file Alcohol Use: Not on file Financial Resource Strain: Not on file Food Insecurity: No Food Insecurity Worried About Running Out of Food in the Last Year: Never true Ran Out of Food in the Last Year: Never true Transportation Needs: Not on file Physical Activity: Not on file Stress: Not on file Social Connections: Not on file Intimate Partner Violence: Not on file Depression: At risk PHQ-2 Score: 7 Housing Stability: Not on file Community Resources: Community Resources: Not Applicable Potential Resource Needs from Benefits Identified: No HRA Provider Assessment Documentation: Objective Past Medical History: Diagnosis Date Asthma, allergic BPH (benign prostatic hypertrophy) BPH with obstruction/lower urinary tract symptoms 06/09/2019 Cardiac arrest (HCC) 2004 Chronic atrial fibrillation (HCC) 04/23/2011 Chronic coronary artery disease 12/15/2004 Chronic throat clearing 09/26/2017 History of fracture of clavicle 07/10/2022 Hypogonadism male 02/24/2019 Kidney disease, chronic, stage III (GFR 30-59 ml/min) 05/06/2018 Per CKD protocol #1 - Mixed hyperlipidemia 12/19/2021 Neuropathy left foot Old IA (myocardial infarction) 12/07/2004 Osteoarthritis Rotator cuff disorder right: S/P angioplasty with stent 12/15/2004 Patient Active Problem List Diagnosis Code S/P angioplasty with stent Z95.820 Chronic coronary artery disease I25.10 ADVANCE DIRECTIVE INFORMATION Old IA (myocardial infarction) I25.2 Chronic atrial fibrillation (HCC) I48.20 Numbness in feet R20.0 Hypogonadism male E29.1 BPH with obstruction/lower urinary tract symptoms N40.1, N13.8 Trigger finger of left thumb M65.312 Chronic bilateral low back pain without sciatica M54.50, G89.29 Mixed hyperlipidemia E78.2 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 Cetirizine HCl 10 MG Oral Capsule Take 1 Capsule by mouth in the morning. MELATONIN 3 MG PO TABS 1/2 mg daily MULTIVITAMINS PO TABS 1 tab daily Ascorbic Acid 1000 MG Oral Tablet 2 tabs a day 60 Tab 0 PREVIDENT 5000 SENSITIVE 1.1-5 % PSTE USE PEA-SIZED AMOUNT AND BRUSH AT BEDTIME, SPIT BUT DO NOT RINSE 4 Aspirin 81 MG Tablet Take 1 Tablet by mouth in the morning and 1 Tablet before bedtime. Nattokinase 100 MG CAPS Take by mouth. Cholecalciferol (VITAMIN D) 125 MCG (5000 UT) CAPS Take by mouth. Willmar-3 Fatty Acids (FISH OIL) 1000 MG Capsule Take 1 Capsule by mouth in the morning. Coenzyme Q10 (COQ10) 100 MG CAPS Take by mouth. Hair Skin and Nails Formula Oral Tablet Take by mouth. Sodium Fluoride 5000 PPM 1.1 % Dental Paste USE DAILY...BRUSH AND EXPECTORATE Amoxicillin 500 MG Oral Capsule (Amoxil) Take 4 capsules by mouth 1 hour before procedure 4 Capsule1 Glucos Chondroit (Boswellia) Oral Tablet Take by mouth . Pregnenolone Micronized 50 MG Oral Tablet Take by mouth 50 mg 2 times a day . Per patient Vitamin B-12 1000 MCG Oral Tablet Take 1 Tablet by mouth in the morning. Astragalus Root Powder Take by mouth 250 mg daily . Ashwagandha 500 MG Oral Capsule Take by mouth . Tadalafil 5 MG Oral Tablet (Cialis) Take 1 Tablet by mouth in the morning. 90 Tablet 1 tiZANidine HCl 2 MG Oral Tablet (Zanaflex) Take 1-2 tablets by mouth at night as needed for pain ormuscle spasm and tightness 60 Tablet 2 Testosterone Compounding Kit 20 % Transdermal Cream Apply 0.5 mL once a day 30 g 1 Tamsulosin HCl 0.4 MG Oral Capsule (Flomax) TAKE ONE CAPSULE BY MOUTH EVERY MORNING 90 Capsule 3 No current facility-administered medications for this visit. Past Surgical History: Procedure Laterality Date CATARACT SURGERY,COMPLEX Bilateral x 2 about 7 - 8 years ago CORONARY ARTERY DILATION, BALLOON 2004 PTCA; LAD stent INFORMATION 06/23/2017 root canal done left upper Immunization History Administered Date(s) Administered COVID-19 mRNA, LNP-s, No Preserve, 2-Dose Series (Skulpt) 10/29/2020, 11/19/2020, 06/18/2021, 01/12/2022 Covid-19, Mrna, Lnp-s, Pf, Bivalent, 30 Mcg, IM, 12 yrs and above (Pfizer) 06/04/2022 DTaP - Dipth/Tet/Acell Pertussis 06/16/2014 Pneumococcal Conjugate Vacc, 13 Valent (Prevnar) 10/04/2014 Pneumococcal Polysaccharide PPV23 (Pneumovax) 07/13/2015 Seasonal Influenza, PF, 6 mons & Above, IM , (Flulaval) 07/15/2017, 07/07/2018 Seasonal Influenza, Quadrivalent Hd (Fluzone Hd) 06/12/2021 Seasonal Influenza, Quadrivalent Hd, 65+ Yrs 05/19/2020 Seasonal Influenza, Quadrivalent, No Preserve, IM 06/07/2016, 07/07/2018 Seasonal Influenza, Split, IIV3, With Preserve, Inj 06/23/2015 Seasonal Influenza, Trivalent, Adjuvanted, 65+ yrs 06/09/2019 Seasonal Influenza, Trivalent, High Dose, No Preserve, IM 06/19/2022 TDAP (age 10 and older)(Boostrix) 03/01/2017 Varicella Zoster Vaccine (Adult) 09/24/2010 Zoster Vaccine Recombinant (Shingrix) 10/12/2019, 02/24/2020 Preventative Plan: Diabetes (Fasting plasma glucose every 3 years): Hemoglobin AIC Results: No results found for: HEMOGLOBIN A1C Glucose Results: Lab Results Component Value Date/Time GLUCOSE - [facility] 93 01/16/2023 11:01 AM GLUCOSE - [facility] 91 06/29/2022 09:07 AM GLUCOSE - [facility] 95 12/22/2021 07:52 AM GLUCOSE - [facility] 93 03/15/2020 11:07 AM GLUCOSE - [facility] 69 (L) 01/12/2019 10:17 AM GLUCOSE - [facility] 93 01/02/2019 07:10 AM GLUCOSE, URINE - [facility] NEGATIVE 02/27/2017 10:33 AM Lipid Testing (Every 5 years): Lipid Panel Results: Results for orders placed or performed in visit on 07/24/18 LIPID PANEL Result Value Ref Range HOURS FASTING >8 HOURS hours Triglycerides 95 <200 mg/dL Cholesterol 231 (H) <200 mg/dL HDL Cholesterol 52 >39 mg/dL Cholesterol-HDL Ratio 4.4 LDL Cholesterol 160 (H) 0 - 129 mg/dL Results for orders placed or performed in visit on 01/16/23 LIPID PANEL WITH DIRECT LDL IF TG IS HIGH Result Value Ref Range Triglycerides 78 <=174 mg/dL Cholesterol 263 (H) <200 mg/dL HDL Cholesterol 67 >39 mg/dL Non-HDL Cholesterol 196 (H) <=159 mg/dL LDL Cholesterol 180 (H) <=129 mg/dL Colonoscopy or other screening: cologuard neg 07/20/22 Health Maintenance Topic Date Due Influenza Vaccine (FLU shot) (1) 05/24/2023 Depression Screening, Annual for Pts 12 and Over 01/16/2024 Colorectal Cancer Screening 07/28/2025 DTaP,Tdap,and Td Vaccines (3 - Td or Tdap) 03/01/2027 Zoster Vaccines Completed Pneumococcal Vaccine: 65+ Years Completed COVID-19 Vaccine Completed Hepatitis B Aged Out MENINGOCOCCAL (MENACTRA/MENVEO) Aged Out GARDASIL-HPV IMMUNIZATION SERIES Aged Out Albumin/Creatinine Ratio Discontinued Review of Systems: Review of Systems All other systems reviewed and are negative. Physical Exam: Vitals: 05/21/23 1613 Temp: 36.7 C (98.1 F) Pulse: 85 Resp: 18 SpO2: 97% BP: 132/78 Pain Screening: Yes - Location: back and shoulder, When: intermittent, Duration: varies, Aggravating Factors: certain movement, Relieved by: rest Pain Scale: 1 out of 10 There is no height or weight on file to calculate BMI. Physical Exam Constitutional: Appearance: Normal appearance. HENT: Head: Normocephalic. Mouth/Throat: Mouth: Mucous membranes are moist. Eyes: Extraocular Movements: Extraocular movements intact. Neck: Vascular: No carotid bruit. Cardiovascular: Rate and Rhythm: Normal rate. Rhythm irregular. Heart sounds: No murmur heard. Pulmonary: Effort: Pulmonary effort is normal. Breath sounds: Normal breath sounds. Abdominal: General: Bowel sounds are normal. Palpations: Abdomen is soft. Musculoskeletal: General: No swelling. Cervical back: Neck supple. Skin: General: Skin is warm and dry. Neurological: General: No focal deficit present. Mental Status: He is alert and oriented to person, place, and time. Psychiatric: Mood and Affect: Mood normal. Behavior: Behavior normal. Lab Data: Lab Results Component Value Date/Time BUN - [facility] 26 (H) 01/16/2023 11:01 AM BUN - [facility] 20 03/15/2020 11:07 AM Lab Results Component Value Date/Time CREATININE - [facility] 1.2 01/16/2023 11:01 AM CREATININE - [facility] 1.1 03/15/2020 11:07 AM CREATININE, RANDOM URINE - [facility] 66 06/29/2022 09:07 AM CREATININE, RANDOM URINE - [facility] 27 12/02/2019 01:40 PM Lab Results Component Value Date/Time GLUCOSE - [facility] 93 01/16/2023 11:01 AM GLUCOSE - [facility] 93 03/15/2020 11:07 AM GLUCOSE, URINE - [facility] NEGATIVE 02/27/2017 10:33 AM No components found for: [id number] Lab Results Component Value Date/Time LDL CHOLESTEROL (CALCULATED) - [facility] 180 (H) 01/16/2023 11:01 AM LDL CHOLESTEROL (CALCULATED) - [facility] 160 (H) 07/24/2018 10:03 AM LDL CHOLESTEROL (DIRECT MEASURE) - [facility] 153 (H) 10/31/2007 11:39 AM No results found for: MICROALBUMIN Assessment/Plan: Tiny was seen today for adult annual wellness visit, initial visit. Diagnoses and all orders for this visit: H/O cardiac arrest BPH with obstruction/lower urinary tract symptoms Chronic atrial fibrillation (HCC) Chronic bilateral low back pain without sciatica Chronic coronary artery disease History of fracture of clavicle Hypogonadism male Mixed hyperlipidemia [place] (myocardial infarction) S/P angioplasty with stent 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 Peripheral polyneuropathy PLAN Pt reports no active issues or adverse effects to the established treatment plan. No changes at this time. Strongly advised to contact her care team if changes occur. Care Planning (3+ Personal and/or Medical Goals): Eat healthy Maintain independence Maintain current activity level Treatment Plan: Continue present medication and follow up with PCP as needed Follow Up/Handouts: CAHAWV f/u one year Stephanie Corcoran PA-C documented in this encounter Plan of Treatment Upcoming Encounters Date Type Specialty Care Team Description 06/13/2023 Office Visit Cardiology Kenton Cr MD [address] [place] [address] Health Maintenance Due Date Last Done Comments [...] Not on filedocumented as of this encounter Visit Diagnoses Diagnosis H/O cardiac arrest- Primary 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 Hypertrophy of prostate with urinary obstruction and other lower urinary tract symptoms (LUTS) Chronic atrial fibrillation (HCC) Atrial fibrillation Chronic bilateral low back pain without sciatica Chronic coronary artery disease Coronary atherosclerosis of unspecified type of vessel, hoh or graft History of fracture of clavicle Personal history of traumatic fracture Hypogonadism male Other testicular hypofunction Mixed hyperlipidemia [place] (myocardial infarction) Old myocardial infarction S/P angioplasty with stent Postsurgical percutaneous transluminal coronary angioplasty status 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 [place]-neck deformity Peripheral polyneuropathy Unspecified hereditary and idiopathic peripheral neuropathy documented in this encounter Care Teams Grievance And Appeals Coordinator Relationship Specialty Start Date End Date Jean Anna MD [address] [place] [address] PCP - General Internal Medicine 06/14/21 documented as of this encounter
--- OUTSIDE RECORDS SUMMARY | 2023-09-04 11:55 | External Medical Summary | Summary of Care ---
Author Name Unknown Organization [facility] Address [address] [place] [address] Phone [phone] Care Team Providers Care Computer Systems Consultant Name Role Phone Jean Anna MD Primary Care Provider + Reason for Visit * Reason Comments eRx-Medication Refill Encounter Details Date Type Department Care Team Description 04/29/2023 Refill General Internal Medicine [facility] [address] [place] [address] Jean Anna MD [address] [place] [address] BPH with obstruction/lower urinary tract symptoms Allergies Active Allergy Reactions Severity Noted Date Comments Environmental Allergy test positive Medium 06/28/2009 Grass,shwetha, trees, and cats documented as of this encounter (statuses as of 04/30/2023) Medications Medication Sig Dispensed Refills Start Date End Date Status MELATONIN 3 MG PO TABS 1/2 mg daily 0 Active MULTIVITAMINS PO TABS 1 tab daily 0 Active fluticasone (FLONASE) 50 MCG/ACT nasal spray Administer 1 [place] into nostril in the morning. 0 Active [...] UT) CAPS Take by mouth. 0 Active [place]-3 Fatty Acids (FISH OIL) 1000 MG Capsule [...] 09/05/2021 Active Amoxicillin 500 MG Oral Capsule (Amoxil)Indicati [...] morning. for pain.. 30 Tablet 5 09/20/2022 Active Additional Information Patient not taking.Reported on 01/29/2023 Tadalafil 5 MG Oral Tablet (Cialis)Indicati ons:Erectile dysfunction, unspecified erectile dysfunction type,BPH with obstruction/lowe r urinary tract symptoms Take 1 Tablet by mouth in the morning. 90 Tablet 1 11/26/2022 Active Finasteride 5 MG Oral Tablet (Proscar)Indicat ions:BPH with obstruction/lowe r urinary tract symptoms Take 1 Tablet by mouth in the morning. 90 Tablet 1 11/26/2022 Active tiZANidine HCl 2 MG Oral Tablet (Zanaflex) Take 1-2 tablets by mouth at night as needed for pain or muscle spasm and tightness 60 Tablet 2 01/16/2023 Active Gabapentin 300 MG Oral Capsule (Neurontin) Take 1 Capsule by mouth at bedtime. 30 Capsule 1 01/16/2023 Active Additional Information Patient not taking.Reported on 01/29/2023 Testosterone Compounding Kit 20 % Transdermal CreamIndications :Hypogonadism male Apply 0.5 mL once a day 30 g 1 04/08/2023 Active Tamsulosin HCl 0.4 MG Oral Capsule (Flomax)Indicati ons:BPH with obstruction/lowe r urinary tract symptoms TAKE ONE CAPSULE BY MOUTH EVERY MORNING 90 Capsule 3 04/30/2023 Active Tamsulosin HCl 0.4 MG Oral Capsule (Flomax)Indicati ons:BPH with obstruction/lowe r urinary tract symptoms Take by mouth 1 Capsule in the morning. 90 Capsule 3 05/01/2022 3 Discontinued documented as of this encounter (statuses as of 04/30/2023) Active Problems Problem Noted Date History of fracture of clavicle 07/10/20 22 [place]-neck deformity of finger of right h and [...] Chronic coronary artery disease 12/16/19 05 Old [place] (myocardial infarction) 5 documented as of this encounter (statuses as of 04/30/2023) Resolved Problems Problem Noted Date Resolved Date Kidney disease, chronic, stage III (GFR 30-59 ml /min) 05/06/2018 07/10/2022 Overview: Per CKD protocol #1 - Chronic throat clearing 09/26/2017 12/20/19 22 Post-nasal drip 09/26/2017 07/07/2018 senior care current use of anticoagulant therapy 0 03/08/2009 10/12/2010 Overview: ICD-10 update of inactive term Anticoagulation management encounter 03/08/2009 10/12/2010 Atrial fibrillation 10/12/2010 documented as of this encounter (statuses as of 04/30/2023) Immunizations Name Administration Dates Next Due COVID-19 mRNA, LNP-s, No Pre serve, 2-Dose Series (SceneShot) 01/12/2022,06/18/2021,11/19/2020,10/29 Covid-19, Mrna, Lnp-s, Pf, B ivalent, [...] encounter Miscellaneous Notes * Telephone Encounter - Mo Lnenon [facility] - 04/30/2023 1:21 AM EDTSigned Prescriptions: Disp Refills Tamsulosin HCl 0.4 MG Oral Capsule (Flomax)90 Cap*3 Sig: TAKE ONE CAPSULE BY MOUTH EVERY MORNINGAuthorizing Provider: JEAN ANNA User: MO LENNON documented in this encounter Plan of Treatment Upcoming Encounters Date Type Specialty Care Team Description 06/13/2023 Office Visit Cardiology Kenton Cr MD [address] [place] [address] Health Maintenance Due Date Last Done Comments [...] as of this encounter Visit Diagnoses Diagnosis BPH with obstruction/lower urinary tract symptoms Hypertrophy of prostate with urinary obstruction and other lower urinary tract symptoms (LUTS) documented in this encounter Care Teams Computer Systems Consultant Relationship Specialty Start Date End Date Jean Anna MD [address] [place] [address], [place] [address] PCP - General Internal Medicine 06/14/21 documented as of this encounter
--- OUTSIDE RECORDS SUMMARY | 2023-09-04 11:55 | External Medical Summary | Summary of Care ---
Author Name Unknown Organization [facility] Address [address] [place] [address] Phone [phone] Care Team Providers Care Mower Sharpener Name Role Phone Jean Lopez MD Primary Care Provider + Encounter Details Date Type Department Care Team Description 05/13/2023 Orders Only Outcomes Research Department [address] [place] [address] Elaina Madrigal CHRA [facility] Other*[id number] Allergies Active Allergy Reactions Severity Noted Date Comments Environmental Allergy test positive Medium 06/28/2009 Grass,shwetha, trees, and cats documented as of this encounter (statuses as of 05/13/2023) Medications Medication Sig Dispensed Refills Start Date End Date Status MELATONIN 3 MG PO TABS 1/2 mg daily 0 Active MULTIVITAMINS PO TABS 1 tab daily 0 Active fluticasone (FLONASE) 50 MCG/ACT nasal spray Administer 1 [place] into nostril in the morning. 0 Active [...] UT) CAPS Take by mouth. 0 Active [place]-3 Fatty Acids (FISH OIL) 1000 MG Capsule Take 1 Capsule by mouth in the morning. 0 Active Cetirizine HCl 10 MG Capsule Take 1 Capsule by mouth in the morning. 0 Active Coenzyme Q10 (COQ10) 100 MG CAPS Take by mouth. 0 A ctive Hair Skin and Nails Formula Oral Tablet Take by mouth. 0 A ctive Sodium Fluoride 5000 PPM 1.1 % Dental Paste USE DAILY...BRUSH AND EXPECTORATE 0 09/05/2021 Active Amoxicillin 500 MG Oral Capsule (Amoxil)Indications :S/P angioplasty with stent,Chronic coronary artery disease,SBE (subacute [...] Oral Capsule Take by mouth . 0 Active Meloxicam 15 MG Oral TabletIndications:I njury of right rotator cuff, initial encounter Take 1 Tablet by mouth in the morning. for pain.. 30 Tablet 5 09/20/2022 Active Additional Information Patient not taking.Reported on 01/29/2023 Tadalafil 5 MG Oral Tablet (Cialis)Indications :Erectile dysfunction, unspecified erectile dysfunction type,BPH with obstruction/lower urinary tract symptoms Take 1 Tablet by mouth in the morning. 90 Tablet 1 11/26/2022 Active Finasteride 5 MG Oral Tablet (Proscar)Indication s:BPH with obstruction/lower urinary tract symptoms Take 1 [...] 01/29/2023 Testosterone Compounding Kit 20 % Transdermal CreamIndications:Hy pogonadism male Apply 0.5 mL once a day 30 g 1 04/08/2023 Active Tamsulosin HCl 0.4 MG Oral Capsule (Flomax)Indications :BPH with obstruction/lower urinary tract symptoms TAKE ONE CAPSULE BY MOUTH EVERY MORNING 90 Capsule 3 04/30/2023 Active documented as of this encounter (statuses as of 05/13/2023) Active Problems Problem Noted Date History of fracture of clavicle 07/10/20 22 [place]-neck deformity of finger of right h and [...] Chronic coronary artery disease 12/16/19 05 Old [place] (myocardial infarction) 5 documented as of this encounter (statuses as of 05/13/2023) Resolved Problems Problem Noted Date Resolved Date Kidney disease, chronic, stage III (GFR 30-59 ml /min) 05/06/2018 07/10/2022 Overview: Per CKD protocol #1 - Chronic throat clearing 09/26/2017 12/20/19 22 Post-nasal drip 09/26/2017 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 0 03/08/2009 10/12/2010 Overview: ICD-10 update of inactive term Anticoagulation management encounter 03/08/2009 10/12/2010 Atrial fibrillation 10/12/2010 documented as of this encounter (statuses as of 05/13/2023) Immunizations Name Administration Dates Next Due COVID-19 mRNA, LNP-s, No Pre serve, 2-Dose Series (NOBOT) 01/12/2022,06/18/2021,11/19/2020,10/29 Covid-19, Mrna, Lnp-s, Pf, B ivalent, 30 Mcg, IM, 12 yrs and above (NOBOT) 06/04/2022 DTaP - Dipth/Tet/Acell Pertussis 06/16/2014 Pneumococcal [...] on file documented as of this encounter Plan of Treatment Upcoming Encounters Date Type Specialty Care Team Description 05/21/2023 Home Visit Family Medicine Stephanie Corcoran PA-C [address] [place] [address] 06/13/2023 Office Visit Cardiology Kenton Cr MD [address] [place] [address] Scheduled Orders Name Type Priority Associated Diagnoses Orde r Schedule MYCODE SUBSEQUENT ADULT Lab Routine [facility] Other*[id number] Every 6 Months for 2 Occurrences starting 05/13/2023 until 06/01/2024 Health Maintenance Due Date Last Done Comments [...] as of this encounter Visit Diagnoses Diagnosis [facility] Other*[id number] documented in this encounter Care Teams Mower Sharpener Relationship Specialty Start Date End Date Jean Lopez MD [address] [place] [address] PCP - General Internal Medicine 06/14/21 documented as of this encounter
--- OUTSIDE RECORDS SUMMARY | 2023-09-04 11:55 | External Medical Summary | Summary of Care ---
Author Name Unknown Organization [facility] Address [address] [place] [address] Phone [phone] Care Team Providers Care Winery Cellar Hand Name Role Phone Jean Anna MD Primary Care Provider + Reason for Visit * Reason Comments eRx-Medication Refill Encounter Details Date Type Department Care Team (Late st Contact Info) Description 08/08/2023 Refill General Internal Medicine [facility] [address] [place] [address] Carol Ann Lal MD [address] [place] [address] Hypogonadism male Allergies Active Allergy Reactions Criticality Noted Date Comments Environmental Allergy test positive Medium 06/28/2009 Grass,shwetha, trees, and cats documented as of this encounter (statuses as of 08/13/2023) Medications Medication Sig Dispensed Refills Start Date [...] UT) CAPS Take by mouth. 0 Active [place]-3 Fatty Acids (FISH OIL) 1000 MG Capsule [...] Take by mouth . 0 Acti ve tiZANidine HCl 2 MG Oral Tablet (Zanaflex) Take 1-2 tablets by mouth at night as needed for pain or muscle spasm and tightness 60 Tablet 2 01/16/2023 Active Tamsulosin HCl 0.4 MG Oral Capsule (Flomax)Indicati ons:BPH with obstruction/lowe r urinary tract symptoms TAKE ONE CAPSULE BY MOUTH EVERY MORNING 90 Capsule 3 04/30/2023 Active Pumpkin Seed Oil Oral Capsule Take by mouth. 0 05/21/2023 Active Cetirizine HCl 10 MG Oral Capsule Take 1 Capsule by mouth in the morning. 0 05/21/2023 Active Tadalafil 5 MG Oral Tablet (Cialis)Indicati ons:BPH with obstruction/lowe r urinary tract symptoms,Erectil e dysfunction, unspecified erectile dysfunction type Take 1 Tablet by mouth in the morning. 90 Tablet 1 05/30/2023 Active Testosterone Compounding Kit 20 % Transdermal CreamIndications :Hypogonadism male APPLY ONE PUMP (0.5ML) TOPICALLY DAILY 30 g 1 08/13/2023 Active Testosterone Compounding Kit 20 % Transdermal CreamIndications :Hypogonadism male Apply 0.5 mL once a day 30 g 1 04/08/2023 3 Discontinued documented as of this encounter (statuses as of 08/13/2023) Active Problems Problem Noted Date Diagnosed Date H/O cardiac arrest 05/21/2023 Peripheral polyneuropathy 05/21/2023 History of fracture of clavicle 07/10/2022 [place]-neck deformity of finger of right hand 02/2022 Chronic bilateral low back pain without sciatica 12/19/2021 Mixed hyperlipidemia 12/19/2021 Trigger finger of left thumb 11/28/2021 BPH with obstruction/lower urinary tract symptom s 06/09/2019 Hypogonadism male 02/24/2019 Numbness in feet 07/24/2018 Chronic atrial fibrillation 04/23/2011 ADVANCE DIRECTIVE INFORMATION 05/22/2005 Overview: No, Advance Directive brochure given to patient at prior appointment. S/P angioplasty with stent 12/15/2004 Chronic coronary artery disease 12/15/2004 Old [place] (myocardial infarction) 12/07/2004 documented as of this encounter (statuses as of 08/13/2023) Resolved Problems Problem Noted Date Diagnosed Date Resolved Date Kidney disease, chronic, sta ge III (GFR 30-59 ml/min) 05/06/2018 07/10/2022 Overview: Per CKD protocol #1 - Chronic throat clearing 09/26/2017 03/2 05/2022 Post-nasal drip 09/26/2017 07/07/2018 nursing home current use of ant icoagulant therapy 03/08/2009 10/12/2010 Overview: ICD-10 update of inactive term Anticoagulation management encounter 03/08/2009 10/12/2010 Atrial fibrillation 10/12/19 11 documented as of this encounter (statuses as of 08/13/2023) Immunizations Name Administration Dates Next Due COVID-19 mRNA, LNP-s, No Pre serve, 2-Dose Series ([place].dm) 01/12/2022,06/18/2021,11/19/2020,10/29 COVID-19, MRNA-LNP, 23-24, P F, 30 MCG/0.3 mL, 12 YRS AND ABOVE, IM [facility] 06/26/2023 Covid-19, Mrna, Lnp-s, Pf, B ivalent, 30 Mcg, IM, 12 yrs and above (Pfizer) 06/04/2022 DTaP Dipth/Tet/Acell Pertussis (Infanrix), Peds 06/16/2014 Pneumococcal Conjugate Vacc, 13 Valent (Prevnar) 10/04/2014 Pneumococcal Polysaccharide PPV23 (Pneumovax) 07/13/2015 SEASONAL INFLUENZA, PF, 6 M & Above, IM , (FLULAVAL or FLUZONE) 07/07/2018,07/15/2017 Seasonal Influenza Virus Vac cine, Unspecified Formulation 05/15/2023 Seasonal Influenza, Quadriva lent Hd (Fluzone Hd) [...] 0.6 oz pur e alcohol) rare social PHQ-2 Answer Date Recorded PHQ Adult Total Score 7 01/15/2023 Hunger Vital Sign Answer Date Recorded Within the past 12 months, y ou worried that your food would run out before you got the money to buy more. Never true 01/16/20 23 Within the past 12 months, t he food you bought just didn't last and you didn't have money to get more. Never true 01/15/2023 Sex and Gender Information Value Date Recorded Sex Assigned at Male 02/24/2019 10:35 AM EDT Gender Identity Male 02/24/2019 10:35 AM EDT Sexual Orientation Straight 02/24/2019 10 :35 AM EDT Job Start Date Occupation Industry Not on file Not on file Not on file documented as of this encounter Miscellaneous Notes * Telephone Encounter - Jean Anna MD - 08/13/2023 8:56 AM ESTSigned Prescriptions: Disp Refills Testosterone Compounding Kit 20 % Transder*30 g 1 Sig: APPLY ONE PUMP (0.5ML) TOPICALLY DAILY Authorizing Provider: JEAN ANNA * Telephone Encounter - Mo Sanchez, [facility] - 08/09/2023 9:53 AM ESTPending Prescriptions: Disp Refills Testosterone Compounding Kit 20 % Transder*30 g 1 Sig: APPLY ONE PUMP (0.5ML) TOPICALLY DAILY * Telephone Encounter - Mo Sanchez, [facility] - 08/09/2023 9:49 AM EST I have reviewed the patients controlled substance dispensing history in the Prescription Drug Monitoring Program in compliance with the [facility] regulations before prescribing a controlled substance. PDMP checked on 08/09/2023. Pending Prescriptions: Disp Refills Testosterone Compounding Kit 20 % Transde*30 g 1 Sig: APPLY ONE PUMP (0.5ML) TOPICALLY DAILY Last Visit: 01/15/2023 (in office), Visit date not found (telemedicine) Next Visit: Visit date not found Date medication was last filled: 06/16/23 Date medication is due for refill: 08/14/23 Pharmacy: [facility] [place] Is this request for a controlled substance? Yes and Urine Drug Screen Not completed Toxicology results: No results found for this or any previous visit. Please approve if appropriate. Thank You, Mo Shannon [facility] Clinical Pharmacist [facility] ([facility]) (formerly Telepharmacy) 08/09/2023, 9:49 AM documented in this encounter Plan of Treatment Health Maintenance Due Date Last Done Comments Sigmoidoscopy 1994 Colonoscopy 04/23/2018 04/23/2008 Fecal Occult Blood Test 08/10/2022 08/10/2021 Depression Screening 01/16/2024 01/15/2023 Cologuard 07/28/2025 07/28/2022, 06/24, 07/20/2022, Additional history exists Colorectal Cancer Screening 07/28/2025 DTaP,Tdap,and Td Vaccines (3 - Td or Tdap) 03/01/2027 03/01/2017, 06/16/2014 Pneumococcal Vaccine: 65+ Years Completed 07/13/2015, 10/04/2014 Zoster Vaccines Completed 02/24/2020, 09/24, 09/24/2010 Albumin/Creatinine Ratio Discontinued 022, 07/05/2021, 12/02/2019, Additional history exists Influenza Vaccine (FLU shot) Completed 05/15/2023, 06/19/2022, 06/12/2021, Additional history exists COVID-19 Vaccine Completed 06/26/2023, 08/2022, 01/12/2022, Additional history exists GARDASIL-HPV IMMUNIZATION SERIES Aged [...] as of this encounter Visit Diagnoses Diagnosis Hypogonadism male Other testicular hypofunction documented in this encounter Care Teams Winery Cellar Hand Relationship Specialty Start Date End Date Jean Anna MD [address] [place] [address] PCP - General Internal Medicine 06/14/21 documented as of this encounter
--- OUTSIDE RECORDS SUMMARY | 2023-09-04 11:55 | External Medical Summary | Summary of Care ---
Author Name Unknown Organization [facility] Address [address] [place] [address] Phone [phone] Care Team Providers Care Spa Attendant Name Role Phone Jean Lopez MD Primary Care Provider + Reason for Visit * Reason Onset Date Comments Appointment 04/04/2023 Encounter Details Date Type Department Care Team Description 04/04/2023 Telephone Care at Home [address] [place] [address] Services, Scheduling [address] [place] [address] Appointment Allergies Active Allergy Reactions Severity Noted Date Comments Environmental Allergy test positive Medium 06/28/2009 Grass,shwetha, trees, and cats documented as of this encounter (statuses as of 04/04/2023) Medications Medication Sig Dispensed Refills Start Date End Date Status MELATONIN 3 MG PO TABS 1/2 mg daily 0 Active MULTIVITAMINS PO TABS 1 tab daily 0 Active fluticasone (FLONASE) 50 MCG/ACT nasal spray Administer 1 [place] into nostril in the morning. 0 Active [...] UT) CAPS Take by mouth. 0 Active [place]-3 Fatty Acids (FISH OIL) 1000 MG Capsule [...] a day . Per patient 0 Active Tamsulosin HCl 0.4 MG Oral Capsule (Flomax)Indications :BPH with obstruction/lower urinary tract symptoms Take by mouth 1 Capsule in the morning. 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 BREA Peck documented in this encounter Plan of Treatment Upcoming Encounters Date Type Specialty Care Team Description 06/13/2023 Office Visit Cardiology Kenton Cr MD [address] [place] [address] Health Maintenance Due Date Last Done Comments Sigmoidoscopy 1994 Colonoscopy 04/23/2018 04/23/2008 COVID-19 Vaccine (5 - Pfizer series) 03/09/2022 01/12/2022, 06/18/2021, 11/19/2020, Additional history exists Fecal Occult Blood Test 08/10/2022 08/10/2021 Influenza [...] filedocumented as of this encounter Care Teams Spa Attendant Relationship Specialty Start Date End Date Jean Lopez MD [address] [facility] [place] [address] PCP - General Internal Medicine 06/14/21 documented as of this encounter
--- OUTSIDE RECORDS SUMMARY | 2023-09-04 11:55 | External Medical Summary | Summary of Care ---
Author Name Unknown Organization [facility] Address [address] [place] [address] Phone [phone] Care Team Providers Care Grain Buyer Name Role Phone Jean Lopez MD Primary Care Provider + Reason for Visit * Reason Comments NEW PATIENT B/L tigger thumb * Evaluate & Treat - Unlimited Visits (Within 30 days (routine)) - Authorized Specialty Diagnoses / Procedures Referred By Magui santacruz Referred To Contact Orthopaedic Surgery / Orthopedics Diagnoses Dupuytren's contracture Jean Lopez MD [address] [place] [address] Lan Pierre MD [address] [place] [address] Referral ID Status Reason Start Date Expiration Date Visits Requested Visits Authorized [id number] Authorized Specialty Services Required 03/01/2023 999 999 Encounter Details Date Type Department Care Team Description 04/01/2023 Office Visit Orthopaedics [facility] [address] [place] [place] [address] Talia Mackenzie MD [address] [place] [address] Primary osteoarthritis of both first carpometacarpal joints* Allergies Active Allergy Reactions Severity Noted Date Comments Environmental Allergy test positive Medium 06/28/2009 Grass,shwetha, trees, and cats documented as of this encounter (statuses as of 04/01/2023) Medications Medication Sig Dispensed Refills Start Date End Date Status MELATONIN 3 MG PO TABS 1/2 mg daily 0 Active MULTIVITAMINS PO TABS 1 tab daily 0 Active fluticasone (FLONASE) 50 MCG/ACT nasal spray Administer 1 [place] into nostril in the morning. 0 Active [...] [place]) CAPS Take by mouth. 0 Active [place]-3 Fatty Acids (FISH OIL) 1000 MG Capsule [...] as of this encounter (statuses as of 04/01/2023) Active Problems Problem Noted Date History of fracture of clavicle 07/10/20 22 [place]-neck deformity of finger of right h and [...] Chronic coronary artery disease 12/16/19 05 Old NM (myocardial infarction) 5 documented as of this encounter (statuses as of 04/01/2023) Resolved Problems Problem Noted Date Resolved Date Kidney disease, chronic, stage III (GFR 30-59 ml /min) 05/06/2018 07/10/2022 Overview: Per CKD protocol #1 - Chronic throat clearing 09/26/2017 12/20/19 22 Post-nasal drip 09/26/2017 07/07/2018 long-term current use of anticoagulant therapy 0 03/08/2009 10/12/2010 Overview: ICD-10 update of inactive term Anticoagulation management encounter 03/08/2009 10/12/2010 Atrial fibrillation 10/12/2010 documented as of this encounter (statuses as of 04/01/2023) Immunizations Name Administration Dates Next Due COVID-19 mRNA, LNP-s, No Pre serve, 2-Dose Series (4C Insights) 01/12/2022,06/18/2021,11/19/2020,10/29 DTaP - Dipth/Tet/Acell Pertussis 06/16/2014 Pneumococcal [...] on file documented as of this encounter Progress Notes * Talia Mackenzie MD - 04/01/2023 2:52 PM EDT History: Chief Complaint Patient presents with NEW PATIENT B/L tigger thumb Nursing Notes: Cynthia Villasenor LPN 04/01/23 1452 Signed New patient B/L trigger thumbs. Patient was see by Dr. Pierre 03/28/2022 As for as the thumbs go, he would require a trapeziometacarpal arthroplasty, perhaps with MP joint arthrodesis. Patient denies going to PT was referred Patient is a 73 year old right handed male ho presents for consultation to [facility] for bilateral hand/finger pain. Consult requested by Jean Lopez MD. office note 01/15/2023 reviewed. Gerardo Merlos is here unaccompanied Patient presents today for concern for bilateral Dupuytren's contracture and to discuss collagenaseinjections. He states that he was followed by Dr. 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 He has longstanding deformity of his bilateral thumbs. Was previously seen by Dr. Pierre in November in March of 2022. Was diagnosedwith bilateral 1st CMC arthritis, trigger thumb. Had trigger thumb injection with some good relief.was told at that visit per chart review that he would require a trapeziometacarpal arthroplasty, perhaps with MP joint arthrodesis to treat his thumb pain. Was also referred to hand therapist. Did not go to hand therapy. Does not feel that he has any weakness that needs treated. His biggest issue is that he gets thumbs gets bent backwards when he plays volleyball. Review of systems: All others negative except those noted above in HPI. Past Medical History: Diagnosis Date Asthma, allergic [...] Mixed hyperlipidemia 12/19/2021 Neuropathy left foot Old NM (myocardial infarction) 12/07/2004 Osteoarthritis Rotator cuff disorder right: S/P angioplasty with stent 12/15/2004 Family History Problem Relation Age of Onset Heart Disorder Brother CAD Heart Disorder Father CHF Cancer Mother ovarian/peritoneal Diabetes Grandmother (Maternal) Diabetes Brother Social History Socioeconomic History Marital status: Spouse name: Cecilia Number of children: 0 Years of education: Not on file Highest education level: Not on file Occupational History 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) Tobacco Use Smoking status: Never Smokeless tobacco: Never Vaping Use Vaping Use: Never used Substance and Sexual Activity Alcohol use: Yes Comment: rare social Drug use: No Sexual activity: Not on file Other Topics Concern Service Not Asked Blood Transfusions Not Asked Caffeine Concern Not Asked Occupational Exposure Not Asked Hobby Hazards Not Asked Sleep Concern Not Asked Stress Concern Not Asked Weight Concern Not Asked Special Diet Not Asked Back Care Not Asked Exercise Not Asked Bike Helmet Not Asked Seat Belt Yes Self-Exams Not Asked Social History Narrative Not on file Social Determinants of Health Financial Resource Strain: Not on file Food Insecurity: No Food Insecurity Worried About Running Out of Food in the Last Year: Never true Ran Out of Food in the Last Year: Never true Transportation Needs: Not on file Physical Activity: Not on file Stress: Not on file Social Connections: Not on file Intimate Partner Violence: Not on file Housing Stability: Not on file Past Surgical History: Procedure Laterality Date CATARACT SURGERY,COMPLEX Bilateral x 2 about 7 - 8 years ago CORONARY ARTERY DILATION, BALLOON 2004 PTCA; LAD stent INFORMATION 06/23/2017 root canal done left upper Physical Exam There were no vitals filed for this visit. Estimated body mass index is 22.3 kg/m as calculated from the following: Height as of 01/29/23: 1.88 m (6' 2"). Weight as of 01/29/23: 78.8 kg (173 lb 11.2 oz). General: generally well-nourished and in no acute distress HEENT: normocephalic, atraumatic, sclera anicteric. Psych: mood and affect normal , cooperative Card: Peripheral pulses: normal in affected extremity (s) Resp: equal chest rise, non-tachypneic, non-labored breathing Skin: no rash, normal Neuro: Sensation: normal on affected extremity (s) MSK: Hand Exam, Bilateral Inspection: Squaring off of the 1st CMC joint with hyperextension of the MP joints and hit shaking thumb, subluxation of the base of the 1st metacarpal Palpation: No tenderness of the A1 julia, no locking/triggering Range of Motion: Range of motion: symmetric and normal in both hands Rotation, angulation, or crossover: yes Strength: Financial Aid Counselor - 5/5 Finger spread - 5/5 Flex - 5/5 Ext - 5/5 Thumb pinch -5/5 Special tests: + CMC grind bilat Assessment and Plan: ICD-10-CM 1. Primary osteoarthritis of both first carpometacarpal joints M18.0 Mr. Merlos is a 73-year-old male who presents today for evaluation of bilateral thumb deformities. Explained to him that his presentation is not consistent with Dupuytren's contracture, and his issuesare likely due to the trapezial metacarpal joint osteoarthritis. Reviewed with him the options thatwere laid out with him at his most recent hand surgery consult. He is not interested in pursuing surgery or seeing Dr. Pierre for re-evaluation at this time. I also discussed with him option for joint injection for pain relief but he stated that he does not have any significant pain. We discussed options of x-rays but after review of indications he does not feel that they will change his management. He declined them. He will follow up as needed. Talia Mackenzie MD Primary Care Sports Medicine Orthopaedics [address] [address] documented in this encounter Nursing Notes * Cynthia Villasenor LPN - 04/01/2023 2:49 PM EDT New patient B/L trigger thumbs. Patient was see by Dr. Pierre 03/28/2022 As for as the thumbs go, he would require a trapeziometacarpal arthroplasty, perhaps with MP joint arthrodesis. Patient denies going to PT was referred documented in this encounter Plan of Treatment Upcoming Encounters Date Type Specialty Care Team Description 06/13/2023 Office Visit Cardiology Kenton Cr MD [address] [place] [address] Scheduled Referrals Name Type Priority Associated Diagnoses Orde r Schedule ORTHOPAEDICS REFERRAL OP Referral Within 30 days (routine) Dupuytren's contracture Ordered: 03/01/2023 Health Maintenance Due Date Last Done Comments [...] as of this encounter Visit Diagnoses Diagnosis Primary osteoarthritis of both first carpometacarpal joints- Primary Primary localized osteoarthrosis, hand documented in this encounter Care Teams Grain Buyer Relationship Specialty Start Date End Date Jean Lopez MD [address] [place] [id number] PCP - General Internal Medicine 06/14/21 documented as of this encounter
[2023-09-04] MEDS ORDERED: OPTIRAY 320 125ml IV ONE (12:16)
--- NOTE | 2023-09-04 12:23 | Cardiology Consultation ---
Date of Consultation September 04, 2023 Assessment & Plan (1) Syncope: (2) Chronic atrial fibrillation: (3) CAD (coronary artery disease): Plan Assessment: 73 year old male with syncopal episode with no prodromal symptoms. EKG A-fib with slow ventricular response with unclear etilology at this time. Plan: Case reviewed with Dr. Berkowitz, please see attestation for further work up and recommendations in regards to plan of care. Supervising Physician Co-Signing Physician Notes Attending Staff: Pt was seen and evaluated with [facility] staff. Concur with observations and plans 73 yo man presenting s/p syncope * Patient ambulating * LOC * Trauma to left face * Head CT - negative for CVA/ bleeding or mass * No seizure activity * No post ictal state * No bowel/bladder incontinence * No recent medication changes * No hx of vagal events * No known cerebrovacular disease * No hx of , HCM * No decrease in PO intake Cardiac Hx: * Afib - permanent * Bradycardia * CAD * S/p Anterior MS c/b Arrest * S/P PCI to mid LAD * LVEF 60% (2018) * Hyperlipidemia * Non-smoker Plans: * Check ECHOcardiogram- Pending * EKG - Afib with slow ventricular response. No Active ischemic changes; no prolonged QTC (360ms) * Telemetry * Pt is not on Beta Blockers or Calcium Channel Maximino or Digoxin * No hx of thyroid disease * Check TSH * + CAD hx * Continue ASA 81 mg po per day * Takes tadalafil - no nitrates * Check Lipids * K+ goal 4.5-5 * KDUR 40 meq po x 1 * Mag goal >2 * + Influenza A Frank Berkowitz History of Present Illness Reason for Consultation: Syncope Requesting Physician: Hiram hospitalist Attending Physician: Jammie Dixon MD History of Present Illness Patient is a 73 year old male with PMHx significant for CAD, Permanent A-fib, not anticoagulated, and prior PCI that presents after sustaining a syncopal episode at home this morning. patient states that he woke up feeling his usual state of health, he proceeded to get out of bed and ambulate to the bathroom. He recalls walking into the bathroom, but the next thing he recalls was he waking him up from the bathroom floor. Patient denies any pre-syncopal symptoms, no prodominal symptoms. He believes he was out for a few seconds to a minute. Patient denies any post ictal confusion, no loss of bowel or bladder function. His assisted him off the floor. patient did strike his left side of his face he believes off of the toilet paper zambrano. patient denies any prior syncopal episodes. He does report recent chills and post nasal drip with a dry cough for 48 hours prior to the event. No N/V/D, no change or decrease in appet ite. Denies any medication changes. PMHx: 1.CAD 2.History of an acute anterior MS complicated by out of hospital cardiac arrest in 2006. 3. S/P cardiac cath with PCI to Mid-LAD for 90% lesion plus moderate irregularities of the Diagonal and RCA 4. Dyslipidemia-Declined statin 5. Permanent Atrial fibrillation- Declines anticoagulation 6. Peripheral neuropathy 7. BPH 8. 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 Kenton Cr. EKG obtained in the ER shows Atrial Fibrillation with slow ventricular response Rate 53. Prior septal infarct, not noted on [address] of head negative for acute infarct or hemorrhage. Initial troponin negative Denies any recent cardiac concerns. He walks 6-8 miles daily with no cardiac concerns. Allergies Allergy/AdvReac Type Severity Reaction Status Date / Time cat dander Allergy Intermediate Sneezing, Unverified 09/04/23 10:48 itchy/watery eyes grass pollen Allergy Intermediate Sneezing, Unverified 09/04/23 10:48 itchy/watery eyes tree and shrub pollen Allergy Intermediate Sneezing, Unverified 09/04/23 10:48 itchy/watery eyes Home Medications Medication Instructions Recorded Confirmed Type multivitamin 1 cap PO QAM 07/12/18 09/04/23 History omega 4-eqn-ypc-fish oil 1,000 mg 1 tab PO DAILY 07/12/18 09/04/23 History (120 mg-180 mg) capsule (Fish Oil) ascorbic acid (vitamin C) 1,000 mg 1,000 mg PO QAM 05/19/20 09/04/23 History tablet aspirin 81 mg tablet,delayed 81 mg PO QAM 05/19/20 09/04/23 History release cetirizine 10 mg capsule 10 mg PO HS 05/19/20 09/04/23 History fluticasone propionate 50 1 spray intranasal DAILY 05/19/20 09/04/23 History mcg/actuation nasal spray,suspension (Flonase Allergy Relief) melatonin 3 mg tablet 3 mg PO HS 05/19/20 09/04/23 History tamsulosin 0.4 mg capsule (Flomax) 0.4 mg PO QAM 05/19/20 09/04/23 History Testosterone 20% Gel 1 pump topical QAM 09/04/23 09/04/23 History soybean, fermented 50 mg capsule 100 mg PO QAM 09/04/23 09/04/23 History (Nattokinase) tadalafil 5 mg tablet 5 mg PO QAM 09/04/23 09/04/23 History tizanidine 2 mg tablet 2 mg PO HS PRN Muscle Spasm 09/04/23 09/04/23 History vitamin B complex 1 tab PO QAM 09/04/23 09/04/23 History Patient History Medical History BPH (benign prostatic hyperplasia) CAD (coronary artery disease) Chronic atrial fibrillation Declines anticoagulation Closed fracture of distal clavicle Lipoma Surgical History History of root canal procedure (~06/23/17) Left upper History of coronary artery balloon dilation (~2004) PTCA; LAD stent Hx of cataract surgery Bilateral - x 2 about 7 - 8 years ago. Family History Mother Cancer Ovarian/Peritoneal Brother Diabetes Grandmother (Maternal) Diabetes Brother Heart disorder CAD Father Heart disorder CHF Other Family history non-contributory Social History Smoking Status: Never smoker Do You Dip or Chew Tobacco: No; Hx Alcohol Use: Yes Alcohol Intake Frequency Comment: Rare social Hx Substance Use: No Preferred Language: Portuguese marital status: current occupational status: unemployed How many Children do You have: 0 Feels Safe at Home: Yes Review of Systems Review of Systems: All systems reviewed & are unremarkable except as noted in HPI & below Physical Exam Physical Exam: Thin JVP at base of neck S1S2 No or outflow murmur appreciated + BS No C/C/E Warm and perfusing Results & Data Vital Signs (Past 12 Hours) Vital Signs Temp Pulse Pulse Resp BP BP Pulse Ox 09/04/23 11:23 84 18 124/71 95 09/04/23 11:23 09/04/23 10:30 66 20 105/73 95 09/04/23 10:08 66 15 102/62 97 09/04/23 09:30 65 15 103/64 09/04/23 09:29 73 17 116/73 97 09/04/23 09:00 67 96 09/04/23 08:41 72 09/04/23 08:30 37.0 C 69 20 103/67 95 O2 Del Method 09/04/23 11:23 09/04/23 11:23 Room Air 09/04/23 10:30 09/04/23 10:08 09/04/23 09:30 09/04/23 09:29 09/04/23 09:00 Nasal Cannula 09/04/23 08:41 09/04/23 08:30 Room Air Laboratory Results Cardiac Enzymes 09/04/23 Range/Units 08:30 AST 29 (13-39) U/L Troponin I High Sens 16.2 (0-20) pg/ml Coagulation 09/04/23 Range/Units 08:30 PT 11.5 (9.0-12.0) Seconds APTT 27 (21-31) Seconds CBC 09/04/23 Range/Units 08:30 WBC 5.54 (4.8-10.8) K/ul RBC 5.09 (4.70-6.10) M/uL Hgb 15.9 (14.0-18.0) g/dl Hct 46.8 (42.0-52.0) % Plt Count 134 (130-400) K/uL Neut # (Auto) 3.01 (1.40-6.50) K/uL Lymph # (Auto) 1.65 (1.20-3.40) K/uL [place] # (Auto) 0.77 H (0.11-0.59) K/uL Eos # (Auto) 0.05 (0.00-0.50) K/uL Baso # (Auto) 0.05 (0.00-0.20) K/uL Comprehensive Metabolic Panel 09/04/23 Range/Units 08:30 Sodium 140 (136-145) mmol/L Potassium 3.9 (3.5-5.1) mmol/L Chloride 108 H (98-107) mmol/L Carbon Dioxide 28 (21-32) mmol/L BUN 22 (6-23) mg/dl Creatinine 1.20 (0.6-1.4) mg/dl Glucose 116 H (70-99(Fasting)) mg/dl Calcium 8.8 (8.6-10.3) mg/dl AST 29 (13-39) U/L ALT 18 (7-52) U/L Alkaline Phosphatase 47 (34-104) U/L Total Protein 6.5 (6.0-8.3) gm/dl Albumin 3.8 (3.4-5.0) gm/dl Intake and Output 09/03/23 09/04/23 09/04/23 22:59 06:59 14:59 Intake Total 500 / 500 Balance 500 / 500 Intake: IV 500 / 500 Sodium Chloride 0.9% 500 ml @ 500 / 500 999 mls/hr IV .Q31M [facility] Rx#: [id number] Other: Weight 78.7 kg Weight Measurement Method Built in [facility] Patient Weight 09/05/23 06:59 Weight 78.7 kg (3) CAD (coronary artery disease) Associated angina: without angina Coronary Disease-Associated Artery/Lesion type: [place] artery [place] vs. transplanted heart: [place] heart Qualified Code(s): I25.10 - Atherosclerotic heart disease of [place] coronary artery [facility] angina pectoris
--- NOTE | 2023-09-04 12:45 | History & Physical Report ---
Date of Service September 04, 2023 Assessment & Plan (1) Syncope: Plan: Admit to telemetry Patient presenting from home after brief syncopal event x 2 Reporting symptoms of URI and fever for the past few days. Bio fire pending. Suspect syncope secondary to dehydration from recent illness however given patient's history of CAD and atrial fibrillation, will admit for additional workup Head/neck CTA ordered -- consider brain MRI with recurrent events or additional symptoms EEG Resting echo EKG reviewed, reveals slow atrial fibrillation with rate 53. Review of outpatient records show that patient's baseline heart rate is usually in the 70s to 80s. Continue to monitor on telemetry Initial HS troponin 16.2, continue to trend Cardiology consult, input appreciated (2) CAD (coronary artery disease): Plan: History of out of hospital cardiac arrest and LAD stenting in 2004 Continue ASA, patient declines statin therapy. Currently not on beta-norma therapy. (3) Chronic atrial fibrillation: Plan: Currently not on any rhythm or rate controlling medications Patient declines anticoagulation (4) BPH (benign prostatic hyperplasia): Plan: Continue tamsulosin and tadalafil DVT PROPHYLAXIS SQ Lovenox Patient seen in collaboration with Dr. Dixon. I spent a total of 75 minutes coordinating, documenting, and providing care for this patient excluding time spent in the performance of separately billed services. This included personally reviewing all current laboratories and imaging studies, medication reconciliation, outpatient chart review, and discussion with specialists. Admission and Anticipated Discharge Date Admission Date: September 04, 2023 History of Present Illness Chief Complaint: Syncope Primary Care Provider: Jean Lopez MD 73-year-old male with PMH CAD with history of cardiac arrest in 2004, BPH, chronic atrial fibrillation not anticoagulated due to patient preference, and other problems listed below who presents to the ED after syncopal event at home. History is obtained from the patient and his who is the bedside as well as review of outpatient PCP and cardiology records. Patient reports that over the past few days, he has had upper respiratory infection symptoms. He reports a mild sore throat and a nonproductive cough. He has had episodes of shaking chills. He has not taken his temperature. He denies any sick contacts. Patient states that he got up earlier this morning to go to the bathroom. He states that his last thing he remembers. reports that she heard a loud bang, from the bathroom and she found him on the floor. Reports that he was unconscious for about 20 seconds. She was able to help him get up and sit on the toilet. He then passed out again for about 10 seconds. states the patient was able to answer her questions however he was somewhat lethargic. No vomiting, tongue biting, loss of bowel or bladder function. Denies unilateral weakness, numbness, tingling. No chest pain or shortness of breath. Patient denies any preceding lightheadedness or dizziness. No abdominal pain or diarrhea. Reports chronic urinary hesitancy which is unchanged from baseline. No dysuria. In the ED, EKG shows slow atrial fibrillation. Patient is hemodynamically stable and labs are unremarkable. Patient was given IVF. Allergies Allergy/AdvReac Type Severity Reaction Status Date / Time cat dander Allergy Intermediate Sneezing, Unverified 09/04/23 10:48 itchy/watery eyes grass pollen Allergy Intermediate Sneezing, Unverified 09/04/23 10:48 itchy/watery eyes tree and shrub pollen Allergy Intermediate Sneezing, Unverified 09/04/23 10:48 itchy/watery eyes Home Medications Medication Instructions Recorded Confirmed Type multivitamin 1 cap PO QAM 07/12/18 09/04/23 History omega 2-nad-stn-fish oil 1,000 mg 1 tab PO DAILY 07/12/18 09/04/23 History (120 mg-180 mg) capsule (Fish Oil) ascorbic acid (vitamin C) 1,000 mg 1,000 mg PO QAM 05/19/20 09/04/23 History tablet aspirin 81 mg tablet,delayed 81 mg PO QAM 05/19/20 09/04/23 History release cetirizine 10 mg capsule 10 mg PO HS 05/19/20 09/04/23 History fluticasone propionate 50 1 spray intranasal DAILY 05/19/20 09/04/23 History mcg/actuation nasal spray,suspension (Flonase Allergy Relief) melatonin 3 mg tablet 3 mg PO HS 05/19/20 09/04/23 History tamsulosin 0.4 mg capsule (Flomax) 0.4 mg PO QAM 05/19/20 09/04/23 History Testosterone 20% Gel 1 pump topical QAM 09/04/23 09/04/23 History soybean, fermented 50 mg capsule 100 mg PO QAM 09/04/23 09/04/23 History (Nattokinase) tadalafil 5 mg tablet 5 mg PO QAM 09/04/23 09/04/23 History tizanidine 2 mg tablet 2 mg PO HS PRN Muscle Spasm 09/04/23 09/04/23 History vitamin B complex 1 tab PO QAM 09/04/23 09/04/23 History Past Med/Surg History Medical History BPH (benign prostatic hyperplasia) CAD (coronary artery disease) Chronic atrial fibrillation Declines anticoagulation Closed fracture of distal clavicle Lipoma Surgical History History of root canal procedure (~06/23/17) Left upper History of coronary artery balloon dilation (~2004) PTCA; LAD stent Hx of cataract surgery Bilateral - x 2 about 7 - 8 years ago. Family History Mother Cancer Ovarian/Peritoneal Brother Diabetes Grandmother (Maternal) Diabetes Brother Heart disorder CAD Father Heart disorder CHF Other Family history non-contributory Social History Smoking Status: Never smoker Do You Dip or Chew Tobacco: No; Hx Alcohol Use: Yes Alcohol Intake Frequency Comment: Rare social Hx Substance Use: No Preferred Language: Cuban marital status: current occupational status: unemployed How many Children do You have: 0 Feels Safe at Home: Yes Physical Exam Constitutional: WD/WN, vitals as above no acute distress Eyes: PERRL, conjunctivae normal, anicteric sclerae ENMT: external ear and nose normal, oropharynx normal Respiratory: normal respiratory effort, lungs clear to auscultation + cough Cardiovascular: Rate/Rhythm: regular rate and + irregularly irregular Vessels: normal peripheral pulses Extremities: no edema Gastrointestinal (Abdomen): normal bowel sounds, soft, nontender, no hepatosplenomegaly Musculoskeletal: no cyanosis or clubbing, extremities motor strength 5/5 Skin: no rashes, warm and dry Neurologic: PERRL, EOMI, accommodation nl, no face palsy, no dysarthria Psychiatric: A+Ox3, euthymic affect Results & Data Results & Data Vital Signs (Past 12 Hours) Vital Signs Temp Pulse Pulse Resp BP BP Pulse Ox 09/04/23 11:23 84 18 124/71 95 09/04/23 11:23 09/04/23 10:30 66 20 105/73 95 09/04/23 10:08 66 15 102/62 97 09/04/23 09:30 65 15 103/64 09/04/23 09:29 73 17 116/73 97 09/04/23 09:00 67 96 09/04/23 08:41 72 09/04/23 08:30 37.0 C 69 20 103/67 95 O2 Del Method 09/04/23 11:23 09/04/23 11:23 Room Air 09/04/23 10:30 09/04/23 10:08 09/04/23 09:30 09/04/23 09:29 09/04/23 09:00 Nasal Cannula 09/04/23 08:41 09/04/23 08:30 Room Air Laboratory Results Short CBC 09/04/23 Range/Units 08:30 WBC 5.54 (4.8-10.8) K/ul Hgb 15.9 (14.0-18.0) g/dl Hct 46.8 (42.0-52.0) % Plt Count 134 (130-400) K/uL BMP 09/04/23 08:30 Sodium 140 Potassium 3.9 Chloride 108 H Carbon Dioxide 28 BUN 22 Creatinine 1.20 Glucose 116 H Calcium 8.8 Liver Function 09/04/23 Range/Units 08:30 Total Bilirubin 1.1 H (0.2-1.0) mg/dl AST 29 (13-39) U/L ALT 18 (7-52) U/L Alkaline Phosphatase 47 (34-104) U/L Albumin 3.8 (3.4-5.0) gm/dl Diagnostic Findings Chest X-Ray 09/04/23 08:48 XR chest 1V portable CLINICAL HISTORY: Syncope. COMPARISON STUDY: Chest radiograph August 28, 2009. FINDINGS: Lung volumes are normal. Lungs are clear. There is no pneumothorax or pleural effusion. Cardiac size is normal. Mediastinal contours are normal. There is no evidence for pulmonary edema. Incidental note is made of an old nonunited distal left clavicular fracture. IMPRESSION: No acute cardiopulmonary findings. ACT 112: Negative or not required by law. Electronically signed by: Madi Stanton M.D. 09/04/2023 9:[address] 09/04/23 09:49 CT SCAN OF THE BRAIN WITHOUT IV CONTRAST CLINICAL HISTORY: Syncope. Head injury. COMPARISON STUDY: CT of the brain dated 07/12/2018. TECHNIQUE: Unenhanced axial CT scan of the brain is performed from the vertex to the skull base. A dose lowering technique was utilized adhering to the principles of ALARA. CT DOSE: 625.8 mGy.cm FINDINGS: Brain parenchyma: There is age-related involutional change noting mild subcortical and periventricular microangiopathic disease. There is no hemorrhage, mass effect, or evidence of acute territorial ischemia by CT criteria. Richardson-white matter differentiation is preserved. No extra-axial fluid collection is seen. Ventricles, sulci, cisterns: Prominent secondary to involutional change. Intracranial vasculature: There is atherosclerotic calcification of the cavernous carotid arteries. Calvarium: The skeletal structures are osteopenic. No depressed calvarial fracture is seen. Soft tissues: There is posterior scalp contusion. Sinuses and mastoids: There is opacification of the right anterior ethmoid sinuses. Mild mucosal thickening is noted of the right frontal sinus. There is trace mucosal thickening within the left ethmoid sinuses and the sphenoid sinuses. The mastoid air cells are well pneumatized. Orbits: The bony orbits are grossly intact. There are bilateral ocular lens implants. IMPRESSION: There is no hemorrhage, mass effect, or evidence of acute territorial ischemia by CT criteria. ACT 112: Negative or not required by law. Electronically signed by: Dominic Funk M.D. 09/04/2023 10:12 AM Supervising Physician Co-Signing Physician Notes Attending addendum: The patient was seen and examined in telemetry unit He has a long history of atrial fibrillation without on anticoagulation as for his own choice Was admitted with 2 episodes of syncope while in the bathroom Happen while sitting down and probably is straining at voiding, lost consciousness for few 8 to 20 seconds Has been feeling generally weak but no other symptom On examination Sitting on bed without any apparent distress Hemodynamically stable Chest-clear to auscultate bilaterally Heart-S1-S2, irregular and no murmur Extremities-no edema Abdomen-benign SCAFFOLDER-alert, awake and oriented x 3. No focal sensory or no motor deficit appreciated His admission labs, EKG and imaging studies reviewed Has had 2 episodes of syncope with loss of consciousness for about 8 to 20 seconds Without any warning and happen while in the toilet and voiding Has been having flulike symptoms for the last few days might have dehydration Seems to be cardiac syncope Will do usual workup of syncope including an EEG Cardiology consult Agree with assessment and plan as outlined above by Cierra Dixon (2) CAD (coronary artery disease) Associated angina: without angina Coronary Disease-Associated Artery/Lesion type: [place] artery [place] vs. transplanted heart: [place] heart Qualified Code(s): I25.10 - Atherosclerotic heart disease of [place] coronary artery without angina pectoris
--- NOTE | 2023-09-04 13:02 | CT Scan Report ---
CT ANGIOGRAM OF THE NECK CLINICAL HISTORY: Syncope COMPARISON STUDY: CT angiogram of the neck dated 07/12/2018. TECHNIQUE: Following the IV administration of 115 of Optiray 320, CT angiogram of the neck was perfor med from the aortic arch to the skull base. Images are reviewed in the axial, sagittal, and coronal p lanes. 3-D MIPS images are created and assessed. IV contrast was administered without complication. A ll measurements were calculated based on NASCET criteria. A dose lowering technique was utilized adh ering to the principles of ALARA. FINDINGS: Thoracic aorta: Visualized portions of the thoracic aorta are normal in caliber. The aortic arch demo nstrates standard 3-vessel anatomy. Right carotid arterial system: The right common carotid artery is widely patent, as are the right int ernal and external carotid arteries. Calcified plaque is noted in the carotid bulb. Left carotid arterial system: The left common carotid artery is widely patent, as are the left test engineering intern al and external carotid arteries. Atherosclerotic plaque is noted in the carotid bulb. Vertebral arteries: The vertebral arteries are widely patent bilaterally and codominant. Subclavian arteries: Widely patent bilaterally. Intracranial vasculature: The visualized intracranial vessels at the skull base are patent. Jugular veins: Widely patent bilaterally. Brain parenchyma: The visualized brain parenchyma the skull base is within normal limits. Lung apices: Partially visualized upper lobe lung parenchyma appears clear. Soft tissues: The visualized pharyngeal soft tissues are normal in appearance noting angiographic pha se technique. The oropharyngeal airway appears widely patent. The salivary and thyroid glands are nor mal in appearance. No cervical lymphadenopathy is seen. Skeletal structures: The skeletal structures are osteopenic. The visualized calvarium at the skull ba se is maintained. The imaged cervical appears intact noting multilevel spondylosis. Sinuses and mastoids: There is mild mucosal thickening in the right maxillary antrum. The mastoid air cells are well pneumatized. IMPRESSION: Unremarkable CT angiogram of the neck. ACT 112: Negative or not required by law. Electronically signed by: Dominic Funk M.D. 09/04/2023 1:00 PM
[2023-09-04 13:05] LABS: Adenovirus PCR Not Detected (NotDetected); Bordetella parapertussis PCR Not Detected (NotDetected); Bordetella pertussis PCR Not Detected (NotDetected); Chlamydia pneumoniae PCR Not Detected (NotDetected); Coronavirus 229E PCR Not Detected (NotDetected); Coronavirus CoV-2 (COVID19)PCR Not Detected (NotDetected); Coronavirus HKU1 PCR Not Detected (NotDetected); Coronavirus NL63 PCR Not Detected (NotDetected); Coronavirus OC43PCR Not Detected (NotDetected); Human Metapneumovirus PCR Not Detected (NotDetected); Influenza B PCR Not Detected (NotDetected); Mycoplasma pneumoniae PCR Not Detected (NotDetected); Parainfluenza Virus 1 PCR Not Detected (NotDetected); Parainfluenza Virus 2 PCR Not Detected (NotDetected); Parainfluenza Virus 3 PCR Not Detected (NotDetected); Parainfluenza Virus 4 PCR Not Detected (NotDetected); Respiratory Syncytial VirusPCR Not Detected (NotDetected); Rhinovirus/Enterovirus PCR Not Detected (NotDetected)
[2023-09-04 13:17] LABS: Influenza A (H3) PCR DETECTED (NotDetected)
[2023-09-04] MEDS ORDERED: POTASSIUM CHLORIDE CRTAB 20 MEQ TABCR PO STA (13:26)
[2023-09-04] MEDS: SODIUM CHLORIDE 0.9% 1,000 ML IV SCH (13:37)
[2023-09-04] MEDS: ENOXAPARIN INJ 40 MG/0.4 ML SYR SQ SCH (13:37)
--- NOTE | 2023-09-04 14:45 | CT Scan Report ---
CTA ANGIOGRAPHY OF THE HEAD CLINICAL HISTORY: Syncope. COMPARISON STUDY: CTA of the head July 12, 2018. Head CT performed earlier today. TECHNIQUE: Helical axial images of the head were obtained following uneventful intravenous administr ation of 115 cc of Optiray. Sagittal and coronal reconstructions were viewed as well as maximal inten sity projections on an independent 3-D workstation. Automated exposure control was utilized for the study. A dose lowering technique was utilized adhering to the principles of ALARA. CT DOSE: 531.82 mGy.cm FINDINGS: Ventricular system is normal. Basal cisterns are patent. No acute hemorrhage is identified on this contrast enhanced exam. There is no calvarial fracture. Right frontal and ethmoid sinuses are partially opacified. This is likely chronic. The bilateral M1, M2, A1 and A2 segments are patent. Po sterior circulation is intact. No large vessel occlusion is present. There is no intracranial aneurys m. No stenoses are identified. There is no dissection within the intracranial vessels. IMPRESSION: Unremarkable CTA of the head. ACT 112: Negative or not required by law. Electronically signed by: Madi Stanton M.D. 09/04/2023 2:43 PM
[2023-09-04] MEDS: ACETAMINOPHEN 325 MG TAB PO PRN (19:18)
[2023-09-04] MEDS ORDERED: MELATONIN 3 MG TAB PO PRN (19:27)
[2023-09-04] MEDS: FLUTICASONE PROPIONATE NA SPR 16 GM BTL SCH (19:54)
[2023-09-04] MEDS ORDERED: CETIRIZINE HCL 10 MG TABLET PO SCH (21:00)
[2023-09-05] MEDS: ACETAMINOPHEN 325 MG TAB PO PRN ×2 (00:13→07:54)
[2023-09-05] MEDS: SODIUM CHLORIDE 0.9% 1,000 ML IV SCH (01:28)
[2023-09-05 06:27] LABS: Hematocrit (blood only) 42.9 % (42.0-52.0); Hemoglobin 14.4 g/dl (14.0-18.0); Mean Corpuscular Hemoglobin 31.2 pg (25.0-34.0); Mean Corpuscular Hgb Conc 33.6 g/dL (32.0-36.0); Mean Corpuscular Volume 93.1 fL (80.0-100.0); Mean Platelet Volume 9.3 fL (9.4-12.4); Platelet Count 113 K/uL (130-400); RDW Coefficient of Variation 13.4 % (11.5-14.5); RDW Standard Deviation 45.1 fL (36.4-46.3); Red Blood Count 4.61 M/uL (4.70-6.10); White Blood Count 4.36 K/ul (4.8-10.8)
[2023-09-05 06:48] LABS: Chol HDL Ratio 3.8 (0-5)
[2023-09-05 06:52] LABS: Calcium 8.3 mg/dl (8.6-10.3); Creatinine Clr Calc Pharmacy 63.8 ml/min; Est GFR (African American) 73.8 ml/min; Est GFR (Non-African American) 63.7 ml/min; Potassium 4.3 mmol/L (3.5-5.1)
[2023-09-05] MEDS: FLUTICASONE PROPIONATE NA SPR 16 GM BTL SCH (07:53)
[2023-09-05] MEDS: ENOXAPARIN INJ 40 MG/0.4 ML SYR SQ SCH (07:55)
--- NOTE | 2023-09-05 08:01 | Cardiology Progress Note ---
Date of Service September 05, 2023 Assessment & Plan Admission and Anticipated Discharge Date Admission Date: September 04, 2023 Supervising Physician Co-Signing Physician Notes Attending Staff: Pt was seen and evaluated with [facility] staff. Concur with observations and plans 73 yo man presenting s/p syncope * Patient ambulating * LOC * Trauma to left face * Head CT - negative for CVA/ bleeding or mass * No seizure activity * No post ictal state * No bowel/bladder incontinence * No recent medication changes * No hx of vagal events * No known cerebrovacular disease * No hx of , HCM * No decrease in PO intake Cardiac Hx: * Afib - permanent * Bradycardia * CAD * S/p Anterior SC c/b Arrest * S/P PCI to mid LAD * LVEF 60% (2018) * Hyperlipidemia * Non-smoker Plans: * ECHOcardiogram- LVEF 55-60%, No WMA, No LVH, RV moderately dilated, moderately reduced function. LA - normal size; MR/TR - both mild. No * EKG - Afib with slow ventricular response. No Active ischemic changes; no prolonged QTC (360ms) * Pt is not on Beta Blockers or Calcium Channel Maximino or Digoxin * TSH - 4 * Lyme titers - Pending * + CAD hx * Continue ASA 81 mg po per day * Takes tadalafil - no nitrates * LDL 125; + CAD S/P Anterior SC/PCI * Start Crestor 20 mg po per day * LDL goal 55 * K+ goal 4.5-5 * KDUR 40 meq po x 1 * Mag goal >2 * + Influenza A * Outpt Ziopatch placement * Please arrange for [facility] Follow up * Please call with any additional questions Frank Berkowitz Subjective Events overnight: * None reported * No pre or harry syncope * No telemetry events - underlying Afib - no pauses noted Subjective: * Markedly improved * Drinking O2/hydrating * No complaints Review of Systems Review of Systems: All systems reviewed & are unremarkable except as noted in HPI & below Physical Exam Physical Exam: Thin JVP at base of neck S1S2 No or outflow murmur appreciated + BS No C/C/E Warm and perfusing Results & Data Vital Signs (Past 12 Hours) Vital Signs Temp Pulse Pulse Resp BP Pulse Ox O2 Del Method 09/04/23 22:53 37.6 C H 82 20 112/75 94 Room Air 09/04/23 22:00 101 H 09/04/23 20:00 Room Air Laboratory Results Cardiac Enzymes 09/04/23 09/04/23 09/04/23 Range/Units 08:30 15:40 21:42 AST 29 (13-39) U/L Troponin I High Sens 16.2 12.1 D 13.6 (0-20) pg/ml Coagulation 09/04/23 Range/Units 08:30 PT 11.5 (9.0-12.0) Seconds APTT 27 (21-31) Seconds Lipids 09/05/23 Range/Units 05:55 Triglycerides 54 (0-150) mg/dl Cholesterol 184 (0-200) mg/dl HDL Cholesterol 48 mg/dl Cholesterol/HDL Ratio 3.8 (0-5) CBC 09/04/23 09/05/23 Range/Units 08:30 05:55 WBC 5.54 4.36 L (4.8-10.8) K/ul RBC 5.09 4.61 L (4.70-6.10) M/uL Hgb 15.9 14.4 (14.0-18.0) g/dl Hct 46.8 42.9 (42.0-52.0) % Plt Count 134 113 L (130-400) K/uL Neut # (Auto) 3.01 (1.40-6.50) K/uL Lymph # (Auto) 1.65 (1.20-3.40) K/uL Collin # (Auto) 0.77 H (0.11-0.59) K/uL Eos # (Auto) 0.05 (0.00-0.50) K/uL Baso # (Auto) 0.05 (0.00-0.20) K/uL Comprehensive Metabolic Panel 09/04/23 09/05/23 Range/Units 08:30 05:55 Sodium 140 140 (136-145) mmol/L Potassium 3.9 4.3 (3.5-5.1) mmol/L Chloride 108 H 109 H (98-107) mmol/L Carbon Dioxide 28 27 (21-32) mmol/L BUN 22 17 (6-23) mg/dl Creatinine 1.20 1.13 (0.6-1.4) mg/dl Glucose 116 H 81 (70-99(Fasting)) mg/dl Calcium 8.8 8.3 L (8.6-10.3) mg/dl AST 29 (13-39) U/L ALT 18 (7-52) U/L Alkaline Phosphatase 47 (34-104) U/L Total Protein 6.5 (6.0-8.3) gm/dl Albumin 3.8 (3.4-5.0) gm/dl Intake and Output 09/04/23 09/05/23 09/05/23 22:59 06:59 14:59 Intake Total 1999 1348 / 3848 Balance 1999 1348 / 3848 Intake: IV 948 / 1448 Sodium Chloride 0.9% 1,000 ml @ 948 / 948 80 mls/hr IV .[id number] [facility] Rx#: [id number] Oral 1999 400 / 2400 Other: # Unmeasured Voids 6 6 Medications Administered Current Inpatient Medications Acetaminophen (Acetaminophen 325 Mg Tab) 650 mg PO Q4H PRN PRN Reason: Pain or Fever Stop: 10/04/23 11:53 Last Admin: 09/05/23 07:54 Dose: 650 mg Aspirin (Aspirin 81 Mg Ectab) 81 mg PO QAM [facility] Stop: 10/05/23 08:59 Last Admin: 09/05/23 07:54 Dose: 81 mg Cetirizine HCl (Cetirizine Hcl 10 Mg Tablet) 10 mg PO HS [facility] Stop: 10/04/23 20:59 Last Admin: 09/04/23 19:53 Dose: 10 mg Enoxaparin Sodium (Enoxaparin Inj 40 Mg/0.4 Ml Syr) 40 mg SQ DAILY [facility] Stop: 10/04/23 12:44 Last Admin: 09/05/23 07:55 Dose: Not Given Fluticasone Propionate (Fluticasone Propionate Na Spr 16 Gm Btl) 1 sprays NA DAILY [facility] Stop: 10/04/23 19:59 Last Admin: 09/05/23 07:53 Dose: 1 sprays Sodium Chloride (Nss) 1,000 mls @ 80 mls/hr IV .[id number] [facility] Stop: 09/05/23 12:59 Last Admin: 09/05/23 01:28 Dose: 80 mls/hr Melatonin (Melatonin 3 Mg Tab) 3 mg PO HS PRN PRN Reason: Sleep Stop: 10/04/23 19:26 Last Admin: 09/04/23 19:54 Dose: 3 mg Miscellaneous (Tadalafil ~ Order Awaiting Action) 1 each N/A QS [facility] Stop: 10/04/23 15:59 Last Admin: 09/05/23 07:48 Dose: Not Given Tamsulosin HCl (Tamsulosin Hcl 0.4 Mg Cap) 0.4 mg PO QAM [facility] Stop: 10/05/23 08:59 Last Admin: 09/05/23 07:54 Dose: 0.4 mg
--- NOTE | 2023-09-05 08:51 | Electrocardiogram Report ---
Test Reason : Blood Pressure : / mmHG Vent. Rate : 053 BPM Atrial Rate : 000 BPM P-R Int : 000 ms QRS Dur : 088 ms QT Int : 384 ms P-R-T Axes : 000 054 048 degrees QTc Int : 360 ms Atrial fibrillation with slow ventricular response Low voltage QRS Old Septal infarct Abnormal ECG When compared with ECG of 12-JUL-2018 11:18, Borderline Criteria for Septal infarct is now Present HR has decreased by 11 bpm Confirmed by Cecil Garrido ([id number] on 09/05/2023 8:50:42 AM Referred By: REFERRED SELF Confirmed By:Cecil Garrido
[2023-09-05] MEDS ORDERED: FLUTICASONE PROPIONATE NA SPR 16 GM BTL SCH (09:00)
[2023-09-05] MEDS ORDERED: TAMSULOSIN HCL 0.4 MG CAP PO SCH (09:00)
[2023-09-05] MEDS ORDERED: ASPIRIN 81 MG ECTAB PO SCH (09:00)
[2023-09-05 12:12] LABS: Lyme Ab IgG w/WB Rflx Negative (Negative)
[2023-09-05 12:18] LABS: Lyme Ab IgM w/WB Rflx Equivocal (Negative)
--- NOTE | 2023-09-05 12:27 | Discharge Summary ---
Discharge Summary Date of Service September 05, 2023 Notes For Next Care Provider 1. -Cardiology recommended Lyme titers- pending on discharge as pt wanted to be discharged. Please ensure followup of those results 2. Head imaging noted sinusitis: -"opacification of the right anterior ethmoid sinuses. Mild mucosal thickening is noted of the right frontal sinus. There is trace mucosal thickening within the left ethmoid sinuses and the sphenoid sinuses." -"Right frontal and ethmoid sinuses are partially opacified. This is likely chronic." -"There is mild mucosal thickening in the right maxillary antrum" 3. Consider ENT follow up. 4. Please ensure cardiology follow up Medication Changes From Visit Crestor 20mg daily Augmentin 875 BID x 10 days Admission HPI Per Admitting Provider 73-year-old male with PMH CAD with history of cardiac arrest in 2004, BPH, chronic atrial fibrillation not anticoagulated due to patient preference, and other problems listed below who presents to the ED after syncopal event at home. History is obtained from the patient and his who is the bedside as well as review of outpatient PCP and cardiology records. Patient reports that over the past few days, he has had upper respiratory infection symptoms. He reports a mild sore throat and a nonproductive cough. He has had episodes of shaking chills. He has not taken his temperature. He denies any sick contacts. Patient states that he got up earlier this morning to go to the bathroom. He states that his last thing he remembers. reports that she heard a loud bang, from the bathroom and she found him on the floor. Reports that he was unconscious for about 20 seconds. She was able to help him get up and sit on the toilet. He then passed out again for about 10 seconds. states the patient was able to answer her questions however he was somewhat lethargic. No vomiting, tongue biting, loss of bowel or bladder function. Denies unilateral weakness, numbness, tingling. No chest pain or shortness of breath. Patient denies any preceding lightheadedness or dizziness. No abdominal pain or diarrhea. Reports chronic urinary hesitancy which is unchanged from baseline. No dysuria. In the ED, EKG shows slow atrial fibrillation. Patient is hemodynamically stable and labs are unremarkable. Patient was given IVF. Admission Exam Per Admitting Provider Constitutional: WD/WN, vitals as above no acute distress Eyes: PERRL, conjunctivae normal, anicteric sclerae ENMT: external ear and nose normal, oropharynx normal Respiratory: normal respiratory effort, lungs clear to auscultation + cough Cardiovascular: Rate/Rhythm: regular rate and + irregularly irregular Ve ssels: normal peripheral pulses Extremities: no edema Gastrointestinal (Abdomen): normal bowel sounds, soft, nontender, no hepatosplenomegaly Musculoskeletal: no cyanosis or clubbing, extremities motor strength 5/5 Skin: no rashes, warm and dry Neurologic: PERRL, EOMI, accommodation nl, no face palsy, no dysarthria Psychiatric: A+Ox3, euthymic affect Principal Dx & Hospital Course #1 = Principal Diagnosis (1) Syncope: (2) CAD (coronary artery disease): (3) Chronic atrial fibrillation: (4) BPH (benign prostatic hyperplasia): Plan 73-year-old male with PMHx significant for CAD with history of cardiac arrest in 2004, BPH, chronic atrial fibrillation not anticoagulated due to patient preference admitted with syncopal episodes. Syncope Patient presenting from home after brief syncopal event x 2 Reporting symptoms of URI and fever for the past few days. Bio fire with noted influenza infection Suspect syncope secondary to dehydration from recent illness however given patient's history of CAD and atrial fibrillation admitted for additional workup Head/neck CTA ordered- was significant for only noted sinusitis Consider brain MRI with recurrent events or additional symptoms, neurology consult EEG was normal EKG reviewed, reveals slow atrial fibrillation with rate 53. Review of outpatient records show that patient's baseline heart rate is usually in the 70s to 80s. Echo showed EF 55-60%, reduced RV systolic function, right ventricle and atrium mildly dilated Initial HS troponin 16.2, downtrended Cardiology consult, input appreciated -recommended Lyme titers- pending on discharge as pt wanted to be discharged. Please ensure followup of those results -start Crestor 20mg -continue aspirin 81mg -Outpt Ziopatch placement- pt given instructions by Cardiology to have it placed [facility] Follow up Sinusitis Head imaging noted: -"opacification of the right anterior ethmoid sinuses. Mild mucosal thickening is noted of the right frontal sinus. There is trace mucosal thickening within the left ethmoid sinuses and the sphenoid sinuses." -"Right frontal and ethmoid sinuses are partially opacified. This is likely chronic." -"There is mild mucosal thickening in the right maxillary antrum" Discharged with Augmentin 875mg Consider ENT follow up CAD (coronary artery disease) History of out of hospital cardiac arrest and LAD stenting in 2004 Continue ASA, patient initially declined statin therapy. Currently not on beta-norma therapy. Cardiology recommending starting crestor 20mg Cardiology f/u Chronic atrial fibrillation Currently not on any rhythm or rate controlling medications Patient declines anticoagulation Cardiology follow up BPH (benign prostatic hyperplasia) Continue tamsulosin Discharge Exam General: Alert, oriented. No acute distress Skin: No noted rashes or bruises Psych: Appropriate mood and affect Neuro: No gross deficits HEENT: NC/AT Chest: Nontender to palpation. CV: RRR Resp: Breath sounds clear bilaterally, no increased effort of breathing. Abdomen: Soft, nontender, nondistended. Extremities: No edema in lower extremities bilaterally. Updated Medication List Medication Instructions Recorded Confirmed Type multivitamin 1 cap PO QAM 07/12/18 09/04/23 History omega 3-xsj-tou-fish oil 1,000 mg 1 tab PO DAILY 07/12/18 09/04/23 History (120 mg-180 mg) capsule (Fish Oil) ascorbic acid (vitamin C) 1,000 mg 1,000 mg PO QAM 05/19/20 09/04/23 History tablet aspirin 81 mg tablet,delayed 81 mg PO QAM 05/19/20 09/04/23 History release cetirizine 10 mg capsule 10 mg PO HS 05/19/20 09/04/23 History fluticasone propionate 50 1 spray intranasal DAILY 05/19/20 09/04/23 History mcg/actuation nasal spray,suspension (Flonase Allergy Relief) melatonin 3 mg tablet 3 mg PO HS 05/19/20 09/04/23 History tamsulosin 0.4 mg capsule (Flomax) 0.4 mg PO QAM 05/19/20 09/04/23 History Testosterone 20% Gel 1 pump topical QAM 09/04/23 09/04/23 History soybean, fermented 50 mg capsule 100 mg PO QAM 09/04/23 09/04/23 History (Nattokinase) tadalafil 5 mg tablet 5 mg PO QAM 09/04/23 09/04/23 History tizanidine 2 mg tablet 2 mg PO HS PRN Muscle Spasm 09/04/23 09/04/23 History vitamin B complex 1 tab PO QAM 09/04/23 09/04/23 History amoxicillin 875 mg-potassium 1 tab PO BID #20 tabs 09/05/23 Rx clavulanate 125 mg tablet rosuvastatin 20 mg tablet 20 mg PO DAILY #30 tabs 09/05/23 Rx Hospital Stay Data Consultations 09/04/23 11:09 ED Decision to Admit Stat 09/04/23 11:52 Consult Cardiology Routine Diagnostic Imagining Performed 09/04/23 09:49 CT head/brain wo con Stat 09/04/23 11:52 CTA head w con [CT angio head w con] Routine CTA neck with con [CT angio neck with con] Routine Chest X-Ray 09/04/23 08:48 XR chest 1V portable CLINICAL HISTORY: Syncope. COMPARISON STUDY: Chest radiograph August 28, 2009. FINDINGS: Lung volumes are normal. Lungs are clear. There is no pneumothorax or pleural effusion. Cardiac size is normal. Mediastinal contours are normal. There is no evidence for pulmonary edema. Incidental note is made of an old nonunited distal left clavicular fracture. IMPRESSION: No acute cardiopulmonary findings. ACT 112: Negative or not required by law. Electronically signed by: Madi Stanton M.D. 09/04/2023 9:[address] 09/04/23 09:49 CT SCAN OF THE BRAIN WITHOUT IV CONTRAST CLINICAL HISTORY: Syncope. Head injury. COMPARISON STUDY: CT of the brain dated 07/12/2018. TECHNIQUE: Unenhanced axial CT scan of the brain is performed from the vertex to the skull base. A dose lowering technique was utilized adhering to the iglesia lisethples of PIERCE. CT DOSE: 625.8 mGy.cm FINDINGS: Brain parenchyma: There is age-related involutional change noting mild subcortical and periventricular microangiopathic disease. There is no he morrhage, mass effect, or evidence of acute territorial ischemia by CT criteria. Richardson-white matter differentiation is preserved. No extra-axial fluid collection is seen. Ventricles, sulci, cisterns: Prominent secondary to involutional change. Intracranial vasculature: There is atherosclerotic calcification of the cavernous carotid arteries. Calvarium: The skeletal structures are osteopenic. No depressed calvarial fracture is seen. Soft tissues: There is posterior scalp contusion. Sinuses and mastoids: There is opacification of the right anterior ethmoid sinuses. Mild mucosal thickening is noted of the right frontal sinus. There is trace mucosal thickening within the left ethmoid sinuses and the sphenoid sinuses. The mastoid air cells are well pneumatized. Orbits: The bony orbits are grossly intact. There are bilateral ocular lens implants. IMPRESSION: There is no hemorrhage, mass effect, or evidence of acute territorial ischemia by CT criteria. ACT 112: Negative or not required by law. Electronically signed by: Dominic Funk M.D. 09/04/2023 10:12 AM Head CTA 09/04/23 11:52 CTA ANGIOGRAPHY OF THE HEAD CLINICAL HISTORY: Syncope. COMPARISON STUDY: CTA of the head July 12, 2018. Head CT performed earlier today. TECHNIQUE: Helical axial images of the head were obtained following uneventful intravenous administration of 115 cc of Optiray. Sagittal and coronal reconstructions were viewed as well as maximal intensity projections on an independent 3-D workstation. Automated exposure control was utilized for the s baydy. A dose lowering technique was utilized adhering to the principles of ALARA. CT DOSE: 531.82 mGy.cm FINDINGS: Ventricular system is normal. Basal cisterns are patent. No acute hemorrhage is identified on this contrast enhanced exam. There is no calvarial fracture. Right frontal and ethmoid sinuses are partially opacified. This is likely chronic. The bilateral M1, M2, A1 and A2 segments are patent. Posterior circulation is intact. No large vessel occlusion is present. There is no intracranial aneurysm. No stenoses are identified. There is no dissection within the intracranial vessels. IMPRESSION: Unremarkable CTA of the head. ACT 112: Negative or not required by law. Electronically signed by: Madi Stanton M.D. 09/04/2023 2:43 PM Neck CTA 09/04/23 11:52 CT ANGIOGRAM OF THE NECK CLINICAL HISTORY: Syncope COMPARISON STUDY: CT angiogram of the neck dated 07/12/2018. TECHNIQUE: Following the IV administration of 115 of Optiray 320, CT angiogram of the neck was performed from the aortic arch to the skull base. Images are reviewed in the axial, sagittal, and coronal planes. 3-D MIPS images are created and assessed. IV contrast was administered without complication. All measurements were calculated based on NASCET criteria. A dose lowering technique was utilized adhering to the principles of ALARA. FINDINGS: Thoracic aorta: Visualized portions of the thoracic aorta are normal in caliber. The aortic arch demonstrates standard 3-vessel anatomy. Right carotid arterial system: The right common carotid artery is widely patent, as are the right internal and external carotid arteries. Calcified plaque is noted in the carotid bulb. Left carotid arterial system: The left common carotid artery is widely patent, a s are the left internal and external carotid arteries. Atherosclerotic plaque is noted in the carotid bulb. Vertebral arteries: The vertebral arteries are widely patent bilaterally and codominant. Subclavian arteries: Widely patent bilaterally. Intracranial vasculature: The visualized intracranial vessels at the skull base are patent. Jugular veins: Widely patent bilaterally. Brain parenchyma: The visualized brain parenchyma the skull base is within normal limits. Lung apices: Partially visualized upper lobe lung parenchyma appears clear. Soft tissues: The visualized pharyngeal soft tissues are normal in appearance noting angiographic phase technique. The oropharyngeal airway appears widely patent. The salivary and thyroid glands are normal in appearance. No cervical lymphadenopathy is seen. Skeletal structures: The skeletal structures are osteopenic. The visualized calvarium at the skull base is maintained. The imaged cervical appears intact noting multilevel spondylosis. Sinuses and mastoids: There is mild mucosal thickening in the right maxillary antrum. The mastoid air cells are well pneumatized. IMPRESSION: Unremarkable CT angiogram of the neck. ACT 112: Negative or not required by law. Electronically signed by: Dominic Funk M.D. 09/04/2023 1:00 PM Pending Results Patient Have Any Pending Studies at Discharge: Yes (lyme, anaplasma and other tick-borne labs) Discharge Instructions Given to Patient (Per Discharging Provider) Mr Merlos, You were admitted as you had 2 syncopal episodes in the setting of the flu and a Hx of atrial fibrillation. You were seen by the finish carpenter and they are recommending discharge with changes to your medications and to have further follow up with an outpatient heart monitor (Zio patch). They note that you should present to the cardiology office after discharge to have that placed for you. Rosuvastatin was added to your medications by cardiology and they are recommending that you continue with the use of your home aspirin. Your head imaging did not note a cause of your syncopal episodes but it did note some mild sinusitis, that in some areas appeared chronic. Discharging you with the medication Augmentin to help with that. Please keep follow up with your prim amena care provider about that as well. You were tested for Lyme and other tick borne illnesses and we will contact you with any positive or significant findings. Please continue to stay hydrated. We ask that you keep close follow up with both your primary care provider and cardiology after discharge. It was a pleasure taking care of you while you were here. Total Time Total Time Spent Total Time Spent (In Minutes): > 30 minutes
--- NOTE | 2023-09-05 15:50 | Electroencephalogram ---
EEG Procedure Note Date of Service September 05, 2023 Start / End Times Start Time: 07:08 End Time: 07:28 Referring Physician LUIS FERNANDO Tam History A 73-year-old male with syncopal episode. EEG performed for evaluation of epileptiform activity. Home Medication List Medication Instructions Recorded Confirmed Type multivitamin 1 cap PO QAM 07/12/18 09/04/23 History omega 4-tuu-qwc-fish oil 1,000 mg 1 tab PO DAILY 07/12/18 09/04/23 History (120 mg-180 mg) capsule (Fish Oil) ascorbic acid (vitamin C) 1,000 mg 1,000 mg PO QAM 05/19/20 09/04/23 History tablet aspirin 81 mg tablet,delayed 81 mg PO QAM 05/19/20 09/04/23 History release cetirizine 10 mg capsule 10 mg PO HS 05/19/20 09/04/23 History fluticasone propionate 50 1 spray intranasal DAILY 05/19/20 09/04/23 History mcg/actuation nasal spray,suspension (Flonase Allergy Relief) melatonin 3 mg tablet 3 mg PO HS 05/19/20 09/04/23 History tamsulosin 0.4 mg capsule (Flomax) 0.4 mg PO QAM 05/19/20 09/04/23 History Testosterone 20% Gel 1 pump topical QAM 09/04/23 09/04/23 History soybean, fermented 50 mg capsule 100 mg PO QAM 09/04/23 09/04/23 History (Nattokinase) tadalafil 5 mg tablet 5 mg PO QAM 09/04/23 09/04/23 History tizanidine 2 mg tablet 2 mg PO HS PRN Muscle Spasm 09/04/23 09/04/23 History vitamin B complex 1 tab PO QAM 09/04/23 09/04/23 History amoxicillin 875 mg-potassium 1 tab PO BID #20 tabs 09/05/23 Rx clavulanate 125 mg tablet rosuvastatin 20 mg tablet 20 mg PO DAILY #30 tabs 09/05/23 Rx Inpatient Medication List Discontinued Medications Acetaminophen (Acetaminophen 325 Mg Tab) 650 mg PO Q4H PRN PRN Reason: Pain or Fever Stop: 10/04/23 11:53 Last Admin: 09/05/23 07:54 Dose: 650 mg Documented By: Admin: 09/05/23 00:13 Dose: 650 mg Documented By: JUAN DANIEL Admin: 09/04/23 19:18 Dose: 650 mg Documented By: JUAN DANIEL Aspirin (Aspirin 81 Mg Ectab) 81 mg PO QAM AMY Stop: 10/05/23 08:59 Last Admin: 09/05/23 07:54 Dose: 81 mg Documented By: MTP Cetirizine HCl (Cetirizine Hcl 10 Mg Tablet) 10 mg PO HS AMY Stop: 10/04/23 20:59 Last Admin: 09/04/23 19:53 Dose: 10 mg Documented By: JUAN DANIEL Enoxaparin Sodium (Enoxaparin Inj 40 Mg/0.4 Ml Syr) 40 mg SQ DAILY AMY Stop: 10/04/23 12:44 Last Admin: 09/05/23 07:55 Dose: Not Given Documented By: Admin: 09/04/23 13:37 Dose: 40 mg Documented By: AMALIA Fluticasone Propionate (Fluticasone Propionate Na Spr 16 Gm Btl) 1 sprays NA DAILY AMY Stop: 10/04/23 19:59 Last Admin: 09/05/23 07:53 Dose: 1 sprays Documented By: Admin: 09/04/23 19:54 Dose: 1 sprays Documented By: JUAN DANIEL Sodium Chloride (Nss) 500 mls @ 999 mls/hr IV .Q31M AMY Stop: 09/04/23 09:30 Last Infusion: 09/04/23 09:30 Dose: Infused Documented By: Admin: 09/04/23 08:59 Dose: 999 mls/hr Documented By: MEDARDO Sodium Chloride (Nss) 1,000 mls @ 80 mls/hr IV .[id number] AMY Stop: 09/05/23 12:59 Last Admin: 09/05/23 01:28 Dose: 80 mls/hr Documented By: JUAN DANIEL Infusion: 09/05/23 01:28 Dose: Infused Documented By: JUAN DANIEL Admin: 09/04/23 13:37 Dose: 80 mls/hr Documented By: AMALIA Ioversol (Optiray 320 125ml) 115 ml IV ONCE ONE Stop: 09/04/23 12:17 Last Admin: 09/04/23 12:16 Dose: 115 ml Documented By: SINAN Melatonin (Melatonin 3 Mg Tab) 3 mg PO HS PRN PRN Reason: Sleep Stop: 10/04/23 19:26 Last Admin: 09/04/23 19:54 Dose: 3 mg Documented By: JUAN DANIEL Miscellaneous (Tadalafil ~ Order Awaiting Action) 1 each N/A QS [facility] Stop: 10/04/23 15:59 Last Admin: 09/05/23 07:48 Dose: Not Given Documented By: Admin: 09/05/23 07:48 Dose: Not Given Documented By: Admin: 09/04/23 13:33 Dose: Not Given Documented By: KTS Potassium Chloride (Potassium Chloride Crtab 20 Meq Tabcr) 40 meq PO NOW STA Stop: 09/04/23 13:27 Last Admin: 09/04/23 13:37 Dose: 40 meq Documented By: KTS Tamsulosin HCl (Tamsulosin Hcl 0.4 Mg Cap) 0.4 mg PO QAM [facility] Stop: 10/05/23 08:59 Last Admin: 09/05/23 07:54 Dose: 0.4 mg Documented By: MTP Description This is a 21 electrode EEG with a single channel dedicated to limited EKG. The electrodes were placed in accordance with the International 10-20 system. REPORT: At the onset of the EEG, the patient is awake. The background activity consist of 9-10 Hz, persistent, posteriorly dominant, moderate amplitude, symmetric and rhythmic activity that is reactive to eye opening. Anteriorly, it consist of a mixture of low voltage indeterminate activity and 15-25 Hz, persistent, low amplitude, symmetric and rhythmic activity. Stepwise intermittent photic stimulation (1-21 Hz) does not induce any abnormalities. Drowsiness is characterized by low amplitude mixed frequency activity, roving eye movements, and decreased eye blinking and muscle artifact. Interpretation IMPRESSION: This is a normal awake and drowsy routine EEG. There is no evidence of focal slowing or epileptiform activity.
[2023-09-05] MEDS ORDERED: ROSUVASTATIN CALCIUM 20 MG TAB PO SCH (21:00)
--- NOTE | 2023-09-07 07:37 | Electrocardiogram Report ---
Test Reason : Blood Pressure : / mmHG Vent. Rate : 068 BPM Atrial Rate : 375 BPM P-R Int : 000 ms QRS Dur : 090 ms QT Int : 364 ms P-R-T Axes : 000 081 005 degrees QTc Int : 387 ms Poor data quality, interpretation may be adversely affected Atrial fibrillation Abnormal ECG When compared with ECG of 04-SEP-2023 08:30, Criteria for Septal infarct are no longer Present Confirmed by Josemanuel Glasgow ([id number]) on 09/07/2023 7:37:17 AM Referred By: REFERRED SELF Confirmed By:Josemanuel Glasgow
[2023-09-09 03:47] LABS: Babesia microti DNA Not Detected (Not Detected)
[2023-09-11 02:28] LABS: 18KDIGG Band NON-REACTIVE; 23KDIGG Band NON-REACTIVE; 23KDIGM Band REACTIVE; 28KDIGG Band NON-REACTIVE; 30KDIGG Band NON-REACTIVE; 39KDIGG Band NON-REACTIVE; 39KDIGM Band NON-REACTIVE; 41KDIGG Band REACTIVE; 41KDIGM Band NON-REACTIVE; 45KDIGG Band NON-REACTIVE; 58KDIGG Band NON-REACTIVE; 66KDIGG Band NON-REACTIVE; 93KDIGG Band NON-REACTIVE; Lyme Antibodies, WB IgG NEGATIVE (NEGATIVE); Lyme Antibodies, WB IgM NEGATIVE (NEGATIVE)
[2023-09-11 05:07] LABS: Ehrlichia chaff DNA Bld Negative (Negative)
== END 2023-09-05 14:23 | disposition home or self-care (01) ==
LOC: EDINP 08:25 → ED 08:25 → SUATTDRO 11:15 → 2E 11:39